=== PATIENT | female | born 1940 | race African-American/Black ===

== ENCOUNTER 2019-02-15 13:18 | Inpatient (IN) | payer OTHER ==
--- NOTE | 2019-02-15 14:11 | PDOC ---
History of Present Illness - General Chief Complaint: Shortness of Breath Stated Complaint: SOB Time Seen by Provider: 02/15/19 14:06 History Source: Patient Exam Limitations: No Limitations - History of Present Illness Initial Comments: 02/15/19 14:37 78 yo F with pmhx of NIDDM, COPD and PVD presents with one week history of worsening shortness of breath. Her home medications are not helping. She denies cough, sputum productions, orthopnea, increased leg swelling, fever or chills. Denies CP,TAI, palpitations, abdominal pain, nausea, fever or vomiting. Past History - Travel Traveled outside of the country in the last 30 days: No Close contact w/someone who was outside of country & ill: No - Past Medical History Allergies/Adverse Reactions: Allergies Allergy/AdvReac Type Severity Reaction Status Date / Time No Known Drug Allergies Allergy Verified 02/15/19 13:43 Home Medications: Ambulatory Orders Ezetimibe [Zetia -] 10 mg PO DAILY 05/24/12 Apixaban [Eliquis] 5 mg PO DAILY #70 tablet 05/24/16 Losartan Potassium 100 mg PO DAILY 08/04/17 Aclidinium [place] [Tudorza Pressair] 400 mcg IH BID 01/10/18 Aspirin 81 mg PO DAILY 01/10/18 Calcium 250Mg/Vit-D 125 Units [Oscal 250 mg+D -] 1 combo PO BID 01/10/18 Calcium Carbonate/Vitamin D3 [Oyster Shell 500-Vit D3 200 Tb] 1 each PO BID 08/19 Cetirizine HCl [Zyrtec -] 10 mg PO HS 01/10/18 Ergocalciferol [Drisdol -] 50,000 units PO DAILY 01/10/18 Ferrous Sulfate 325 mg PO DAILY 01/10/18 Glipizide/Metformin HCl [Glipizide-Metformin 5-500 mg] 1 each PO BID 01/10/18 Lipase/Protease/Amylase [Creon Dr 24,000 Units Capsule] 1 each PO BID 01/10/18 Omeprazole 40 mg PO DAILY 01/10/18 Pramipexole Di-HCl [Mirapex] 0.125 mg PO HS 01/10/18 Vitamin B Complex 1 each PO DAILY 01/10/18 Anemia: No Asthma: No Cancer: Yes (cervical Ca s/p ILEANA) Cardiac Disorders: Yes (2 STENTS) CVA: No COPD: No CHF: No Dementia: No Diabetes: Yes GI Disorders: Yes (CONSTIPATION,DIVERTICULOSIS,HEMORRHOIDS) Disorders: No HTN: Yes Hypercholesterolemia: Yes Liver Disease: No Seizures: No Thyroid Disease: No - Surgical History Abdominal Surgery: No Appendectomy: No Cardiac Surgery: Yes (2 STENTS 2015) Cholecystectomy: No Lung Surgery: No Neurologic Surgery: No Orthopedic Surgery: Yes (UYEN. ARTHROSCOPIC KNEE SURGERIES) - Suicide/Smoking/Psychosocial Hx Smoking History: Unknown if ever smoked Have you smoked in the past 12 months: No Number of Cigarettes Smoked Daily: 10 If you are a former smoker, when did you quit?: 2016 Information on smoking cessation initiated: No 'Breaking Loose' booklet given: 10/28/15 Hx Alcohol Use: No Drug/Substance Use Hx: No Substance Use Type: None Hx Substance Use Treatment: No Review of Systems - Review of Systems Able to Perform ROS?: No Is the patient limited [place] proficient: Yes Constitutional: No: Diaphoresis, Fever HEENTM: No: Recent change in vision Respiratory: Yes: Shortness of Breath. No: Cough, Orthopnea, Wheezing, Productive cough Cardiac (ROS): No: Chest Pain, Edema, Irregular Heart Rate, Chest Tightness ABD/GI: No: Difficulty Swallowing, Nausea, Vomiting Musculoskeletal: No: Joint Pain Endocrine: No: Excessive Sweating, Intolerance to Cold *Physical Exam - Vital Signs Last Vital Signs Temp Pulse Resp BP Pulse Ox 97.4 F L 112 H 18 125/91 94 L 02/15/19 13:20 02/15/19 13:20 02/15/19 13:20 02/15/19 13:20 02/15/19 13:20 - Physical Exam General Appearance: Yes: Appropriately Dressed, Mild Distress HEENT: positive: EVANS, Normal Voice Neck: positive: Supple Respiratory/Chest: positive: Decreased Breath Sounds. negative: Crackles, Rales , Wheezing Cardiovascular: positive: Regular Rhythm, Regular Rate, S1, S2, Edema (1+ bilateral LE ). negative: JVD Vascular Pulses: Dorsalis-Pedis (R): 1+, Doralis-Pedis (L): 2+ Gastrointestinal/Abdominal: positive: Normal Bowel Sounds, Flat, Soft Musculoskeletal: negative: CVA Tenderness Neurologic: positive: Alert, Normal Mood/Affect ED Treatment Course - LABORATORY CBC & Chemistry Diagram: 02/19/19 05:30 02/19/19 05:30 Medical Decision Making - Medical Decision Making 02/15/19 14:53 78 yo F with pmhx of NIDDM, COPD and PVD presents with one week history of worsening shortness of breath. Differential includes but not limited to COPD exacerbation, ACS, CHF , and PNA. WIll send for: CBC, CMP, Cardiac profile and BNP. CXR and EKG ordered. 02/15/19 18:26 CXR shows vascular congestion and BNP >6000. troponin 0.3 appears to be new onset CHF. Spoke to hospitalist- Accepted to telemetry. *DC/Admit/Observation/Transfer Diagnosis at time of Disposition: New onset of congestive heart failure - Discharge Dispostion Decision to Admit order: Yes - Referrals - Patient Instructions - Post Discharge Activity
--- NOTE | 2019-02-15 14:57 | PDOC ---
Documentation entered by Antonio Hollingsworth SCRIBE, acting as scribe for Kesha Boykin MD. Kesha Boykin MD: This documentation has been prepared by the Darrick awan Nirvannie, SCRIBE, under my direction and personally reviewed by me in its entirety. I confirm that the documentation accurately reflects all work, treatment, procedures, and medical decision making performed by me. Attending Attestation - Resident Resident Name: Guillermo Howard - ED Attending Attestation I have performed the following: I have examined & evaluated the patient, The case was reviewed & discussed with the resident, I agree w/resident's findings & plan, Exceptions are as noted - HPI HPI: 02/15/19 14:53 The patient is a 78 year old female, with a significant past medical history of NIDDM, COPD, and PVD , who presents to the emergency department with, 1 week of worsening shortness of breath. Patient endorses using her at home rescue inhaler , without relief, prompting her arrival to the ED. She denies any chest pain or palpitations. She denies recent fevers, chills, headache or dizziness. She denies recent nausea, vomit, diarrhea or constipation. She denies recent dysuria, frequency, urgency or hematuria. Allergies: NKDA Primary Care Physician: Dr. Graff - Physicial Exam PE: 02/15/19 14:48 GENERAL: Awake, alert, and fully oriented, in no acute distress HEAD: No signs of trauma EYES: PERRLA, EOMI, sclera anicteric, conjunctiva clear ENT: Auricles normal inspection, hearing grossly normal, nares patent, oropharynx clear without exudates. Moist mucosa NECK: Normal ROM, supple, no lymphadenopathy, JVD, or masses LUNGS: Dec air entry B/L. No wheezes, no crackles. HEART: Regular rate and rhythm, normal S1 and S2, no murmurs, rubs or gallops ABDOMEN: Soft, nontender, normoactive bowel sounds. No guarding, no rebound. No masses EXTREMITIES: Normal range of motion, no edema. No clubbing or cyanosis. No cords, erythema, or tenderness NEUROLOGICAL: Cranial nerves II through XII grossly intact. Normal speech. Motor and sensation intact SKIN: Warm, Dry, normal turgor, no rashes or lesions noted - Medical Decision Making Pt with multiple medical issues presents with SOB, tachycardia. No leg swelling. Will obtain labs including troponin and BNP to further evaluate. Will also obtain CXR to r/o pna.
[2019-02-15 16:22] LABS: BASO % 0.4 % (0-2.0); EOS % 0.3 % (0-4.5); HEMOGLOBIN 12.4 GM/dL (10.7-15.3); LYMPH % 10.4 % (8-40); MCHC 31.8 g/dl (32.0-36.0); MEAN CELL VOLUME 88.1 fl (80-96); MEAN PLT VOLUME 7.2 fl (7.5-11.1); MONO % 4.1 % (3.8-10.2); NEUT % 84.8 % (42.8-82.8); RBC 4.43 M/mm3 (3.60-5.2); RDW 13.1 % (11.6-15.6); WHITE BLOOD COUNT 11.2 K/mm3 (4.0-10.0)
[2019-02-15 16:56] LABS: PLATELET COUNT 364 K/MM3 (134-434); PLATELET ESTIMATE ADEQUATE
[2019-02-15 16:58] LABS: ALBUMIN 3.3 g/dl (3.4-5.0); BILIRUBIN,TOTAL 0.8 mg/dL (0.2-1); CREATININE 1.6 mg/dL (0.55-1.3); N-TERMINAL BNP 6069.3 pg/ml (5-450); TOT PROT 7.5 g/dl (6.4-8.2)
[2019-02-15 16:59] LABS: POTASSIUM 3.9 mmol/L (3.5-5.1)
[2019-02-15] MEDS: ALBUTEROL SO4 2.5/IPRATROPIUM 0.5 INH SOL 3 ML VIAL.NEB. NEB SCH ×4 (17:04→17:35)
[2019-02-15] MEDS ORDERED: ALBUTEROL SO4 2.5/IPRATROPIUM 0.5 INH SOL 3 ML VIAL.NEB. NEB ONE ×2 (17:06→17:54)
[2019-02-15] MEDS: ASPIRIN 325 MG TABLET PO SCH (18:17)
--- NOTE | 2019-02-15 19:59 | HP ---
Admitting History and Physical - Primary Care Physician PCP: Greer Mcclain - Admission Chief Complaint: Shortness of breath History of Present Illness: this is a 78 y/o F with hx of HTN, DL, DMII, PAD s/p stent, aortic aneurysm s/p stent presented to the hospital for 1 week history of shortness of breath associated with cough, according the patient she was feeling fine until mohter' s day when she started to develop SOB associated with her cough, she denied any fever but she did state that she felt cold few times. patient denied any chest pain, chest discomfort, palpitations, or LOC, she stated that her legs were swollen but the swelling has improved drastically over the past month. Limitations to Obtaining History: No Limitations - Past Medical History Cardiovascular: Yes: Hyperlipdemia Endocrine: Yes: Diabetes Mellitus - Smoking History Smoking history: Unknown if ever smoked Have you smoked in the past 12 months: No Aproximately how many cigarettes per day: 10 If you are a former smoker, when did you quit?: 2016 - Alcohol/Substance Use Hx Alcohol Use: No Home Medications - Allergies Allergies/Adverse Reactions: Allergies Allergy/AdvReac Type Severity Reaction Status Date / Time No Known Drug Allergies Allergy Verified 02/15/19 13:43 - Home Medications Home Medications: Ambulatory Orders Ezetimibe [Zetia -] 10 mg PO DAILY 05/24/12 Apixaban [Eliquis] 5 mg PO DAILY #70 tablet 05/24/16 Losartan Potassium 100 mg PO DAILY 08/04/17 Aclidinium [place] [Tudorza Pressair] 400 mcg IH BID 01/10/18 Aspirin 81 mg PO DAILY 01/10/18 Calcium 250Mg/Vit-D 125 Units [Oscal 250 mg+D -] 1 combo PO BID 01/10/18 Calcium Carbonate/Vitamin D3 [Oyster Shell 500-Vit D3 200 Tb] 1 each PO BID 08/19 Cetirizine HCl [Zyrtec -] 10 mg PO HS 01/10/18 Ergocalciferol [Drisdol -] 50,000 units PO DAILY 01/10/18 Ferrous Sulfate 325 mg PO DAILY 01/10/18 Glipizide/Metformin HCl [Glipizide-Metformin 5-500 mg] 1 each PO BID 01/10/18 Lipase/Protease/Amylase [Creon Dr 24,000 Units Capsule] 1 each PO BID 01/10/18 Omeprazole 40 mg PO DAILY 01/10/18 Pramipexole Di-HCl [Mirapex] 0.125 mg PO HS 01/10/18 Vitamin B Complex 1 each PO DAILY 01/10/18 Review of Systems - Review of Systems Constitutional: reports: Chills. denies: No Symptoms, Diaphoresis, Fever, Lethargy, Loss of Appetite, Malaise, Night Sweats, Unintentional Wgt. Loss, Weakness, Other Eyes: reports: No Symptoms HENT: reports: No Symptoms Neck: reports: No Symptoms Cardiovascular: reports: Shortness of Breath Respiratory: reports: Cough, SOB, SOB on Exertion Gastrointestinal: reports: No Symptoms Genitourinary: reports: No Symptoms Breasts: reports: No Symptoms Reported Musculoskeletal: reports: No Symptoms Integumentary: reports: No Symptoms Neurological: reports: No Symptoms Endocrine: reports: No Symptoms Hematology/Lymphatic: reports: No Symptoms Psychiatric: reports: No Symptoms Physical Examination Vital Signs: Vital Signs Temperature 97.4 F L 02/15/19 13:20 Pulse Rate 120 H 02/15/19 19:28 Respiratory Rate 22 H 02/15/19 19:28 Blood Pressure 112/84 02/15/19 19:28 O2 Sat by Pulse Oximetry (%) 95 02/15/19 19:28 Constitutional: Yes: Well Nourished, No Distress, Calm Eyes: Yes: WNL, Conjunctiva Clear, EOM Intact HENT: Yes: WNL, Atraumatic, Normocephalic Neck: Yes: WNL, Supple, Trachea Midline Cardiovascular: Yes: WNL, Regular Rate and Rhythm, Tachycardia, S1, S2 Respiratory: Yes: Regular, CTA Bilaterally, Cough, Diminished, Dullness, On Nasal O2 Gastrointestinal: Yes: WNL, Normal Bowel Sounds, Soft Musculoskeletal: Yes: WNL Extremities: Yes: WNL Edema: No Peripheral Pulses WNL: Yes Integumentary: Yes: WNL Neurological: Yes: WNL, Alert, Oriented ...Motor Strength: WNL Psychiatric: Yes: WNL, Alert, Oriented Labs: CBC, BMP 02/15/19 14:05 02/15/19 14:05 Imaging - Results Chest X-ray: Report Reviewed, Image Reviewed EKG: Report Reviewed, Image Reviewed Problem List - Problems (1) HFrEF (heart failure with reduced ejection fraction) Assessment/Plan: based on elevated BNP - patient is not in an acute decompensted state at this time - obtain echocardiogram - cardiology consult dr. Lao - admit patient to Tele monitor - start patient on low dose b-blockers - Hold the ARB in the setting of BRENNON Code(s): I50.20 - UNSPECIFIED SYSTOLIC (CONGESTIVE) HEART FAILURE (2) Diabetes mellitus type 2 in obese Assessment/Plan: Insulin sliding scale hold the PO medication Code(s): E11.9 - TYPE 2 DIABETES MELLITUS WITHOUT COMPLICATIONS; E66.9 - OBESITY , UNSPECIFIED (3) Hyperlipidemia Assessment/Plan: c/w statin Code(s): E78.5 - HYPERLIPIDEMIA, UNSPECIFIED Qualifiers: Hyperlipidemia type: Pure hypercholesterolemia (4) Hypertension associated with diabetes Assessment/Plan: hold ARB start the patient on carvedilol 3.125mg twice a day and titrate accordingly Code(s): E11.59 - TYPE 2 DIABETES MELLITUS WITH OTH CIRCULATORY COMPLICATIONS; I10 - ESSENTIAL (PRIMARY) HYPERTENSION (5) Acute kidney injury superimposed on chronic kidney disease Assessment/Plan: possible hypoperfusion due to DCHF obtain urine electrolytes - urin osmolarity - renal evaluation - monitor urine output - hold nephrotoxic drug - repeat labs in the morning Code(s): N17.9 - ACUTE KIDNEY FAILURE, UNSPECIFIED; N18.9 - CHRONIC KIDNEY DISEASE, UNSPECIFIED
[2019-02-15] MEDS ORDERED: PATIENT'S OWN MEDICATION (NON-FORMULARY) (Lipase/Protease/Amylase [Creon Dr 24,000 Units C PO SCH (22:00)
[2019-02-15] MEDS: CARVEDILOL 3.125 MG TABLET (FP) PO SCH (22:56)
[2019-02-15] MEDS: CALCIUM 250MG/VIT-D 125 UNITS 1 COMBO TABLET PO SCH (22:56)
[2019-02-15] MEDS: PRAMIPEXOLE DIHYDROCHLORIDE 0.125 MG TABLET PO SCH (22:57)
[2019-02-16] MEDS: INSULIN SLIDING SCALE (NOVOLOG) 1 VIAL SQ SCH ×3 (06:13→16:44)
[2019-02-16 06:49] LABS: BASO % 0.6 % (0-2.0); EOS % 0.8 % (0-4.5); HEMATOCRIT 35.8 % (32.4-45.2); HEMOGLOBIN 11.8 GM/dL (10.7-15.3); MCH 28.8 pg (25.7-33.7); MCHC 32.8 g/dl (32.0-36.0); MEAN CELL VOLUME 87.6 fl (80-96); MEAN PLT VOLUME 7.2 fl (7.5-11.1); MONO % 5.3 % (3.8-10.2); NEUT % 80.3 % (42.8-82.8); PLATELET COUNT 392 K/MM3 (134-434); RBC 4.09 M/mm3 (3.60-5.2); RDW 12.8 % (11.6-15.6)
[2019-02-16 07:19] LABS: ALBUMIN 3.1 g/dl (3.4-5.0); BILIRUBIN,TOTAL 0.7 mg/dL (0.2-1); CALCIUM 8.7 mg/dL (8.5-10.1); CREATININE 1.4 mg/dL (0.55-1.3); POTASSIUM 3.8 mmol/L (3.5-5.1); TOT PROT 6.9 g/dl (6.4-8.2)
[2019-02-16] MEDS: LIPASE/PROTEASE/AMYLASE 6,000 UNIT CAPSULE PO SCH ×2 (08:36→16:45)
[2019-02-16] MEDS: ASPIRIN 325 MG TABLET PO SCH ×2 (09:09→09:12)
[2019-02-16] MEDS: EZETIMIBE 10 MG TABLET (FP) PO SCH (09:09)
[2019-02-16] MEDS: ASPIRIN 81 MG CHEWABLE TABLETS PO SCH (09:09)
[2019-02-16] MEDS: PANTOPRAZOLE 40 MG TABLET (FP) PO SCH (09:09)
[2019-02-16] MEDS: CALCIUM 250MG/VIT-D 125 UNITS 1 COMBO TABLET PO SCH ×2 (09:09→21:52)
[2019-02-16] MEDS: VITAMIN B COMP W-C 1 EA TABLET PO SCH (09:10)
[2019-02-16] MEDS: CARVEDILOL 3.125 MG TABLET (FP) PO SCH ×2 (09:10→21:52)
[2019-02-16] MEDS ORDERED: PATIENT'S OWN MEDICATION (NON-FORMULARY) (Omeprazole [Omeprazole] 40 MG) PO SCH (10:00)
[2019-02-16] MEDS ORDERED: APIXABAN 5 MG TABLET PO SCH (10:00)
[2019-02-16] MEDS ORDERED: PATIENT'S OWN MEDICATION (NON-FORMULARY) (Vitamin B Complex [Vitamin B Complex] 1 EACH) PO SCH (10:00)
--- NOTE | 2019-02-16 11:05 | EKG ---
Test Reason : Blood Pressure : / mmHG Vent. Rate : 110 BPM Atrial Rate : 110 BPM P-R Int : 124 ms QRS Dur : 096 ms QT Int : 390 ms P-R-T Axes : 059 -09 031 degrees QTc Int : 527 ms SINUS TACHYCARDIA INCOMPLETE RIGHT BUNDLE BRANCH BLOCK INFERIOR INFARCT , AGE UNDETERMINED NONSPECIFIC ST ABNORMALITY Confirmed by INDY MONTEZ MD ([id number]) on 02/16/2019 11:05:18 AM Referred By: Confirmed By:INDY MONTEZ MD
--- NOTE | 2019-02-16 12:45 | PN ---
Progress Note, Physician - Current Medication List Current Medications: Active Medications Apixaban (Eliquis -) 5 mg PO BID [facility] Aspirin (Asa -) 81 mg PO DAILY [facility] Last Admin: 02/16/19 09:09 Dose: 81 mg Calcium/Vitamin D (Oscal 250 Mg+D -) 1 tab PO BID [facility] Last Admin: 02/16/19 09:09 Dose: 1 tab Carvedilol (Coreg -) 3.125 mg PO BID [facility] Last Admin: 02/16/19 09:10 Dose: 3.125 mg Ezetimibe (Zetia -) 10 mg PO DAILY [facility] Last Admin: 02/16/19 09:09 Dose: 10 mg Furosemide (Lasix Injection -) 40 mg IVPUSH DAILY [facility] Insulin Aspart (Novolog Vial Sliding Scale -) 1 vial SQ TIDAC [facility]; Protocol Last Admin: 02/16/19 11:03 Dose: Not Given Multivit/Ca Carb/B Cmplx/FA/Prenat (Nephro-Lisa -) 1 tablet PO DAILY [facility] Last Admin: 02/16/19 09:10 Dose: 1 tablet Pancrelipase (Creon Dr 6,000 Units Capsule) 4 cap PO BIDWM [facility] Last Admin: 02/16/19 08:36 Dose: 4 cap Pantoprazole Sodium (Protonix -) 40 mg PO DAILY [facility] Last Admin: 02/16/19 09:09 Dose: 40 mg Pramipexole Dihydrochloride (Mirapex -) 0.125 mg PO HS [facility] Last Admin: 02/15/19 22:57 Dose: 0.125 mg - Objective Vital Signs: Vital Signs Temperature 97.7 F 02/16/19 12:03 Pulse Rate 93 H 02/16/19 12:03 Respiratory Rate 18 02/16/19 12:03 Blood Pressure 119/79 02/16/19 12:03 O2 Sat by Pulse Oximetry (%) 97 02/16/19 07:41 Cardiovascular: Yes: S1, S2 Respiratory: Yes: Diminished, Rales Gastrointestinal: Yes: Normal Bowel Sounds, Soft Labs: CBC, BMP 02/16/19 05:30 02/16/19 05:30 Problem List - Problems (1) HFrEF (heart failure with reduced ejection fraction) Assessment/Plan: - obtain echocardiogram - start patient on low dose b-blockers - IV Lasix - Hold the ARB in the setting of BRENNON Code(s): I50.20 - UNSPECIFIED SYSTOLIC (CONGESTIVE) HEART FAILURE (2) Acute kidney injury superimposed on chronic kidney disease Assessment/Plan: obtain urine electrolytes - urine osmolarity - monitor urine output - hold nephrotoxic drug - repeat labs in the morning - Renal consult Code(s): N17.9 - ACUTE KIDNEY FAILURE, UNSPECIFIED; N18.9 - CHRONIC KIDNEY DISEASE, UNSPECIFIED (3) Diabetes Assessment/Plan: Insulin sliding scale hold the PO medication Code(s): E11.9 - TYPE 2 DIABETES MELLITUS WITHOUT COMPLICATIONS
[2019-02-16] MEDS: FUROSEMIDE 40 MG/4 ML INJECTABLE VIAL IVPUSH SCH (13:28)
[2019-02-16] MEDS ORDERED: PT OWN MED DRAWER 7, Y5N ONE ×2 (16:56→21:29)
[2019-02-16] MEDS: APIXABAN 5 MG TABLET PO SCH (21:52)
[2019-02-16] MEDS: PRAMIPEXOLE DIHYDROCHLORIDE 0.125 MG TABLET PO SCH (21:53)
[2019-02-17] MEDS: INSULIN SLIDING SCALE (NOVOLOG) 1 VIAL SQ SCH ×3 (06:01→16:49)
[2019-02-17] MEDS: LIPASE/PROTEASE/AMYLASE 6,000 UNIT CAPSULE PO SCH ×2 (08:18→17:02)
--- NOTE | 2019-02-17 09:56 | PN ---
Progress Note, Physician - Current Medication List Current Medications: Active Medications Apixaban (Eliquis -) 5 mg PO BID [facility] Apixaban (Eliquis -) 10 mg PO BID [facility] Stop: 02/23/19 21:59 Last Admin: 02/16/19 21:52 Dose: 10 mg Aspirin (Asa -) 81 mg PO DAILY [facility] Last Admin: 02/16/19 09:09 Dose: 81 mg Calcium/Vitamin D (Oscal 250 Mg+D -) 1 tab PO BID [facility] Last Admin: 02/16/19 21:52 Dose: 1 tab Carvedilol (Coreg -) 3.125 mg PO BID [facility] Last Admin: 02/16/19 21:52 Dose: 3.125 mg Ezetimibe (Zetia -) 10 mg PO DAILY [facility] Last Admin: 02/16/19 09:09 Dose: 10 mg Furosemide (Lasix Injection -) 40 mg IVPUSH DAILY [facility] Last Admin: 02/16/19 13:28 Dose: 40 mg Insulin Aspart (Novolog Vial Sliding Scale -) 1 vial SQ TIDAC [facility]; Protocol Last Admin: 02/17/19 06:01 Dose: Not Given Multivit/Ca Carb/B Cmplx/FA/Prenat (Nephro-Lisa -) 1 tablet PO DAILY [facility] Last Admin: 02/16/19 09:10 Dose: 1 tablet Pancrelipase (Creon Dr 6,000 Units Capsule) 4 cap PO BIDWM [facility] Last Admin: 02/17/19 08:18 Dose: 4 cap Pantoprazole Sodium (Protonix -) 40 mg PO DAILY [facility] Last Admin: 02/16/19 09:09 Dose: 40 mg Pramipexole Dihydrochloride (Mirapex -) 0.125 mg PO HS [facility] Last Admin: 02/16/19 21:53 Dose: 0.125 mg - Objective Vital Signs: Vital Signs Temperature 98.2 F 02/17/19 08:20 Pulse Rate 92 H 02/17/19 08:20 Respiratory Rate 18 02/17/19 08:23 Blood Pressure 134/79 02/17/19 08:20 O2 Sat by Pulse Oximetry (%) 97 02/17/19 08:23 Cardiovascular: Yes: S1, S2 Respiratory: Yes: Regular, CTA Bilaterally Gastrointestinal: Yes: Normal Bowel Sounds, Soft Problem List - Problems (1) HFrEF (heart failure with reduced ejection fraction) Assessment/Plan: - obtain echocardiogram - start patient on low dose b-blockers - IV Lasix - Hold the ARB in the setting of BRENNON -CARDIO Code(s): I50.20 - UNSPECIFIED SYSTOLIC (CONGESTIVE) HEART FAILURE (2) Acute kidney injury superimposed on chronic kidney disease Assessment/Plan: - obtain urine electrolytes - urine osmolarity - monitor urine output - hold nephrotoxic drug - repeat labs in the morning - Renal consult Code(s): N17.9 - ACUTE KIDNEY FAILURE, UNSPECIFIED; N18.9 - CHRONIC KIDNEY DISEASE, UNSPECIFIED (3) Diabetes Assessment/Plan: Insulin sliding scale hold the PO medication Code(s): E11.9 - TYPE 2 DIABETES MELLITUS WITHOUT COMPLICATIONS
[2019-02-17 10:05] LABS: BASO % 0.4 % (0-2.0); EOS % 1.3 % (0-4.5); HEMATOCRIT 39.7 % (32.4-45.2); HEMOGLOBIN 12.7 GM/dL (10.7-15.3); LYMPH % 10.6 % (8-40); MCH 28.1 pg (25.7-33.7); MCHC 31.9 g/dl (32.0-36.0); MEAN CELL VOLUME 88.3 fl (80-96); MEAN PLT VOLUME 7.1 fl (7.5-11.1); NEUT % 82.7 % (42.8-82.8); PLATELET COUNT 398 K/MM3 (134-434); WHITE BLOOD COUNT 10.4 K/mm3 (4.0-10.0)
[2019-02-17 10:19] LABS: BILIRUBIN,TOTAL 0.7 mg/dL (0.2-1); CALCIUM 8.9 mg/dL (8.5-10.1); CREATININE 1.3 mg/dL (0.55-1.3); POTASSIUM 3.6 mmol/L (3.5-5.1); TOT PROT 6.7 g/dl (6.4-8.2)
[2019-02-17] MEDS: CALCIUM 250MG/VIT-D 125 UNITS 1 COMBO TABLET PO SCH ×2 (10:30→22:02)
[2019-02-17] MEDS: PANTOPRAZOLE 40 MG TABLET (FP) PO SCH (10:30)
[2019-02-17] MEDS: ASPIRIN 81 MG CHEWABLE TABLETS PO SCH (10:30)
[2019-02-17] MEDS: VITAMIN B COMP W-C 1 EA TABLET PO SCH (10:30)
[2019-02-17] MEDS: EZETIMIBE 10 MG TABLET (FP) PO SCH (10:31)
[2019-02-17] MEDS: CARVEDILOL 3.125 MG TABLET (FP) PO SCH ×2 (10:31→22:02)
[2019-02-17] MEDS: APIXABAN 5 MG TABLET PO SCH ×2 (10:32→22:02)
[2019-02-17] MEDS: FUROSEMIDE 40 MG/4 ML INJECTABLE VIAL IVPUSH SCH (10:32)
--- NOTE | 2019-02-17 11:01 | CONSULT ---
Consult - text type - Consultation Consultation Note: Renal Consult for CKD This is a 78 year old woman with hx of AAA s/p endovascular repair 2016, PVD, HTN, HLD, DM2 who presented with complaints of cough and admitted for heart failure with Cr of 1.6->1.3. Pt denies any history of CKD, kidney stones, or recurrent UTI's. Denies any NSAID use or recent contrast exposure. Making urine w/o dysuira, hematuria or retention. No leg swelling now. Feels better overall this am. Pt reports being on diuretics at home. Denies any CP, fever, chills, N/ V/D. PMHx: as above Allergies: NKDA Family Hx: NC Social Hx: No T/A/D ROS: as per HPI, all other pertinent ros negative Home Medications Medication Instructions Recorded Ezetimibe [Zetia -] 10 mg PO DAILY 05/24/12 Apixaban [Eliquis] 5 mg PO DAILY #70 tablet 05/24/16 Losartan Potassium 100 mg PO DAILY 08/04/17 Aclidinium [place] [Tudorza 400 mcg IH BID 01/10/18 Pressair] Aspirin 81 mg PO DAILY 01/10/18 Calcium 250Mg/Vit-D 125 Units 1 combo PO BID 01/10/18 [Oscal 250 mg+D -] Calcium Carbonate/Vitamin D3 1 each PO BID 01/10/18 [Oyster Shell 500-Vit D3 200 Tb] Cetirizine HCl [Zyrtec -] 10 mg PO HS 01/10/18 Ergocalciferol [Drisdol -] 50,000 units PO DAILY 01/10/18 Ferrous Sulfate 325 mg PO DAILY 01/10/18 Glipizide/Metformin HCl 1 each PO BID 01/10/18 [Glipizide-Metformin 5-500 mg] Lipase/Protease/Amylase [Creon Dr 1 each PO BID 01/10/18 24,000 Units Capsule] Omeprazole 40 mg PO DAILY 01/10/18 Pramipexole Di-HCl [Mirapex] 0.125 mg PO HS 01/10/18 Vitamin B Complex 1 each PO DAILY 01/10/18 Vital Signs Temperature 98.2 F 02/17/19 08:20 Pulse Rate 92 H 02/17/19 08:20 Respiratory Rate 18 02/17/19 08:23 Blood Pressure 134/79 02/17/19 08:20 O2 Sat by Pulse Oximetry (%) 97 02/17/19 08:23 Intake & Output 02/14/19 02/15/19 02/16/19 02/17/19 23:59 23:59 23:59 23:59 Intake Total 150 1090 100 Output Total 400 Balance 150 690 100 Weight 82.554 kg 82.282 kg 82.191 kg NAD awake and alert neck supple no JVD RRR, no M/R CTA, no rales, dec BS, no wheeze soft NT/ND no LE edema, clubbing or cyanosis no focal neurologic deficits no bladder distension CBC, BMP 02/17/19 09:36 02/17/19 09:36 Laboratory Tests 02/17/19 09:36 Est GFR (CKD-EPI)AfAm 46.15 Calcium 8.9 Albumin 3.0 L Current Medications Apixaban (Eliquis -) 5 mg PO BID [facility] Apixaban (Eliquis -) 10 mg PO BID [facility] Stop: 02/23/19 21:59 Last Admin: 02/17/19 10:32 Dose: 10 mg Aspirin (Asa -) 81 mg PO DAILY [facility] Last Admin: 02/17/19 10:30 Dose: 81 mg Calcium/Vitamin D (Oscal 250 Mg+D -) 1 tab PO BID [facility] Last Admin: 02/17/19 10:30 Dose: 1 tab Carvedilol (Coreg -) 3.125 mg PO BID [facility] Last Admin: 02/17/19 10:31 Dose: 3.125 mg Ezetimibe (Zetia -) 10 mg PO DAILY [facility] Last Admin: 02/17/19 10:31 Dose: 10 mg Furosemide (Lasix Injection -) 40 mg IVPUSH DAILY [facility] Last Admin: 02/17/19 10:32 Dose: 40 mg Insulin Aspart (Novolog Vial Sliding Scale -) 1 vial SQ TIDAC [facility]; Protocol Last Admin: 02/17/19 06:01 Dose: Not Given Multivit/Ca Carb/B Cmplx/FA/Prenat (Nephro-Lisa -) 1 tablet PO DAILY [facility] Last Admin: 02/17/19 10:30 Dose: 1 tablet Pancrelipase (Creon Dr 6,000 Units Capsule) 4 cap PO BIDWM [facility] Last Admin: 02/17/19 08:18 Dose: 4 cap Pantoprazole Sodium (Protonix -) 40 mg PO DAILY [facility] Last Admin: 02/17/19 10:30 Dose: 40 mg Pramipexole Dihydrochloride (Mirapex -) 0.125 mg PO HS [facility] Last Admin: 02/16/19 21:53 Dose: 0.125 mg 78 year old woman with hx of AAA s/p endovascular repair 2016, PVD, HTN, HLD, DM2 who presented with complaints of cough and admitted for heart failure with Cr of 1.6->1.3. #BRENNON vs. CKD #SOB with HF #Hypertension #DM2 Renal function improving thus far this admission while on IV Lasix Check Urine for FeUrea, Urine Eos, UPCR no acute need for renal imaging at this time off ARB, however if Cr remains stable or improves can restart continue Lasix as per primary CXR w/o effusions ECHO as per cardiology goal BP < 130/80 given CKD/DM Thank you Will follow Maurilio Escobar DO
--- NOTE | 2019-02-17 11:28 | PN ---
Progress Note (short form) - Note Progress Note: Chief Complaint: Events noted, notes reviewed, progressive dyspnea with increasing bilateral lower extremity edema, denies any chest pain History of Present Illness: Seen and examined on telemetry. Full consult dictated - Current Medication List Current Medications Apixaban (Eliquis -) 5 mg PO BID [facility] Apixaban (Eliquis -) 10 mg PO BID [facility] Stop: 02/23/19 21:59 Last Admin: 02/17/19 10:32 Dose: 10 mg Aspirin (Asa -) 81 mg PO DAILY [facility] Last Admin: 02/17/19 10:30 Dose: 81 mg Calcium/Vitamin D (Oscal 250 Mg+D -) 1 tab PO BID [facility] Last Admin: 02/17/19 10:30 Dose: 1 tab Carvedilol (Coreg -) 3.125 mg PO BID [facility] Last Admin: 02/17/19 10:31 Dose: 3.125 mg Ezetimibe (Zetia -) 10 mg PO DAILY [facility] Last Admin: 02/17/19 10:31 Dose: 10 mg Furosemide (Lasix Injection -) 40 mg IVPUSH DAILY [facility] Last Admin: 02/17/19 10:32 Dose: 40 mg Insulin Aspart (Novolog Vial Sliding Scale -) 1 vial SQ TIDAC [facility]; Protocol Last Admin: 02/17/19 06:01 Dose: Not Given Multivit/Ca Carb/B Cmplx/FA/Prenat (Nephro-Lisa -) 1 tablet PO DAILY [facility] Last Admin: 02/17/19 10:30 Dose: 1 tablet Pancrelipase (Creon Dr 6,000 Units Capsule) 4 cap PO BIDWM [facility] Last Admin: 02/17/19 08:18 Dose: 4 cap Pantoprazole Sodium (Protonix -) 40 mg PO DAILY [facility] Last Admin: 02/17/19 10:30 Dose: 40 mg Pramipexole Dihydrochloride (Mirapex -) 0.125 mg PO HS [facility] Last Admin: 02/16/19 21:53 Dose: 0.125 mg Review of Systems Cardiovascular: As noted above Respiratory: denies: Cough or Sputum Production Gastrointestinal: denies: Nausea, Vomiting, Diarrhea, Constipation or Abdominal Discomfort Musculoskeletal: No Symptoms Reported Endocrine: No Symptoms Reported - Objective Vital Signs: Last Vital Signs Temp Pulse Resp BP Pulse Ox 98.2 F 92 H 18 134/79 97 02/17/19 08:20 02/17/19 08:20 02/17/19 08:23 02/17/19 08:20 02/17/19 08:23 Intake & Output 02/14/19 02/15/19 02/16/19 02/17/19 23:59 23:59 23:59 23:59 Intake Total 150 1090 100 Output Total 400 Balance 150 690 100 Weight 182 lb 181 lb 6.4 oz 181 lb 3.2 oz Neck: Supple Negative JVD No Bruit Cardiovascular: S1 S2 Regular Rate and Rhythm Grade 2/6 JULY Respiratory: Diminished Breath Sounds Bilaterally Scattered Rhonchi Gastrointestinal: Soft Benign Normal Bowel Sounds Ext: Trace Edema Labs: Troponin, BNP 02/17/19 09:36 Troponin I 0.07 H CBC, BMP 02/17/19 09:36 02/17/19 09:36 Hepatic Panel Total Bilirubin 0.7 mg/dL (0.2-1) 02/17/19 09:36 AST 24 U/L (15-37) 02/17/19 09:36 ALT 19 U/L (13-61) 02/17/19 09:36 Alkaline Phosphatase 70 U/L (45-117) 02/17/19 09:36 Albumin 3.0 g/dl (3.4-5.0) L 02/17/19 09:36 Assessment/Plan ASSESSMENT: 1. Clinical presentation consistent with acute on chronic class I-II NYHA classifcation LV failure related to diastolic LV dysfunction 2. CAD with evidence of demand ischemia angina pectoris 3. HTN 4. DM 5. Hypercholesterolemia 6. Heart murmur 7. History of AAA post EVAR 8. History of DVT on Eliquis 9. COPD 10. Probable POOJA 11. Chronic renal insufficiency PLAN: 1. Continue Eliquis and ASA therapies with caution 2. Continuation of Coreg therapy and further titration of dosage as needed and as tolerated 3. Addition of JEAN PIERRE inhibitor or angiotensin receptor mitra therapy with caution considering the above-noted chronic kidney disease unless contraindicated 4. Continuation of IV Lasix therapy 5. Echocardiography for evaluation of left ventricular systolic function and the above-noted heart murmur Further recommendation will depend upon response to above therapy adjustments and results of above planned echocardiography study Above was reviewed and discussed in detail with the patient Elizabeth Mon M.D.
--- NOTE | 2019-02-17 16:50 | CONS ---
DATE OF CONSULTATION: DATE OF DICTATION: 02/17/2019 Consultation requested by Rigo Graff MD. HISTORY OF PRESENT ILLNESS: Patient known to our service. A 78-year-old female of descent with known history of coronary artery disease, angina pectoris, diastolic left ventricular dysfunction with clinical class 0 [place] [employer] classification left ventricular failure, hypertensive cardiovascular disease, diabetes mellitus, hypercholesterolemia, abdominal aortic aneurysm post endovascular repair, history of DVT on Eliquis therapy, history of probable chronic obstructive pulmonary disease and obstructive sleep apnea who presented to [facility] with increasing dyspnea which has been progressive over the last several days and in addition increasing bilateral lower extremity edema. Upon evaluation in the emergency room the patient was noted to have elevated BNP and in addition elevated troponin-I level. Dyspnea has been noted with mild to moderate physical exertion and subsequently with minimal physical activity. The patient reported increasing bilateral lower extremity edema. The patient denied any orthopnea or paroxysmal nocturnal dyspnea. The patient denied any chest discomfort. The patient denied any palpitation, dizziness, light-headedness or syncope. The patient has been reporting increasing fatigue and tiredness. PAST MEDICAL HISTORY: Coronary artery disease, angina pectoris, diastolic left ventricular dysfunction with clinical class 0 [place] [employer] classification left ventricular failure, hypertensive cardiovascular disease, diabetes mellitus, hypercholesterolemia, abdominal aortic aneurysm, post endovascular intervention, peripheral vascular disease, deep vein thrombosis on Eliquis therapy, chronic obstructive pulmonary disease, degenerative joint disease. SOCIAL HISTORY: Prior history of tobacco abuse. FAMILY HISTORY: Positive coronary artery disease. ALLERGIES: None reported. MEDICAL THERAPY: Currently include Eliquis 5 mg twice a day, aspirin 81 mg once a day, calcium 1 tablet twice a day, Coreg 3.125 mg twice a day, Zetia 10 mg once a day, Lasix 40 mg IV push once a day, insulin coverage, multivitamin 1 tablet once a day, Creon 4 capsules twice a day, Protonix 40 mg once a day, Mirapex 0.125 mg once daily. REVIEW OF SYSTEMS: Head and neck: Denies headaches, photophobia, blurring of vision. Respiratory: Denies cough, sputum production. Cardiovascular: As noted above. Gastrointestinal: Denied nausea, vomiting, diarrhea, abdominal discomfort. Genitourinary: No symptoms reported. Musculoskeletal: History of degenerative joint disease. PHYSICAL EXAMINATION: Vital Signs: Blood pressure is 134/79 mmHg, pulse rate is 92 beats per minute. Head/Neck: Pupils equal round and reactive to light and accommodation. Extraocular muscles intact. Anicteric sclerae. Negative JVD. No bruit appreciated. Chest: Diminished breath sounds at the bases bilaterally. Cardiovascular: S1, S2 regular, grade 2/6 systolic ejection murmur. No clicks or gallops. Abdomen: Soft, benign, normoactive bowel sounds. Extremities: Trace edema. Diminished distal pulses. No calf tenderness. Chest x-ray was noted. Troponin-I 0.07. BNP value was noted. CBC revealed a white cell count 10.4, hemoglobin 12.7, platelet count 398. Basic metabolic profile revealed a sodium of 141, potassium 3.6, BUN 16, creatinine 1.3, glucose 180. ASSESSMENT: 1. Clinical presentation consistent with [id number] class I to II [place] [employer] left ventricular failure related to diastolic left ventricular dysfunction. 2. Coronary artery disease with evidence of demand ischemia and angina pectoris. 3. Hypertension. 4. Diabetes mellitus. 5. Hypercholesterolemia. 6. Abdominal aortic aneurysm, post endovascular repair. 7. Peripheral vascular disease. 8. History of deep venous thrombosis on Eliquis therapy. 9. Chronic obstructive pulmonary disease. 10. Probable obstructive sleep apnea. 11. Chronic kidney disease. RECOMMENDATION: 1. Continuation of Eliquis and aspirin therapies with caution. 2. Diminution of chloride therapy and titration of dosage. 3. Addition of JEAN PIRERE inhibitor or angiotensive receptor mitra therapy with caution considering the above noted chronic kidney disease. 4. IV Lasix therapy. 5. Echocardiography for evaluation of left ventricular systolic function and the above noted heart murmur. Further recommendation will depend upon response to above therapy adjustments and results of above planned echocardiography study. Above was reviewed and discussed in detail with the patient. Thank you for your kind referral. ARTHUR RAMIREZ M.D. [id number]
[2019-02-17] MEDS ORDERED: PT OWN MED DRAWER 7, Y5N ONE ×2 (16:54→22:04)
[2019-02-17] MEDS: PRAMIPEXOLE DIHYDROCHLORIDE 0.125 MG TABLET PO SCH (22:04)
[2019-02-18 06:25] LABS: BASO % 0.8 % (0-2.0); EOS % 0.9 % (0-4.5); HEMATOCRIT 35.2 % (32.4-45.2); HEMOGLOBIN 11.7 GM/dL (10.7-15.3); LYMPH % 12.1 % (8-40); MCH 28.7 pg (25.7-33.7); MCHC 33.2 g/dl (32.0-36.0); MEAN CELL VOLUME 86.7 fl (80-96); MEAN PLT VOLUME 7.2 fl (7.5-11.1); MONO % 6.2 % (3.8-10.2); PLATELET COUNT 430 K/MM3 (134-434); RBC 4.06 M/mm3 (3.60-5.2); RDW 12.7 % (11.6-15.6); WHITE BLOOD COUNT 9.9 K/mm3 (4.0-10.0)
[2019-02-18] MEDS: INSULIN SLIDING SCALE (NOVOLOG) 1 VIAL SQ SCH ×3 (06:37→18:17)
[2019-02-18 06:40] LABS: ALBUMIN 2.8 g/dl (3.4-5.0); BILIRUBIN,TOTAL 0.7 mg/dL (0.2-1); CALCIUM 8.6 mg/dL (8.5-10.1); CREATININE 1.2 mg/dL (0.55-1.3); MAGNESIUM 1.7 mg/dL (1.8-2.4); PHOSPHOROUS 3.9 mg/dL (2.5-4.9); POTASSIUM 3.6 mmol/L (3.5-5.1); TOT PROT 6.4 g/dl (6.4-8.2)
[2019-02-18] MEDS: LIPASE/PROTEASE/AMYLASE 6,000 UNIT CAPSULE PO SCH ×2 (08:41→18:20)
--- NOTE | 2019-02-18 09:43 | PN ---
Progress Note, Physician History of Present Illness: Dyspnea and LE edema resolving with diuresis. - Current Medication List Current Medications: Active Medications Apixaban (Eliquis -) 5 mg PO BID [facility] Apixaban (Eliquis -) 10 mg PO BID [facility] Stop: 02/23/19 21:59 Last Admin: 02/17/19 22:02 Dose: 10 mg Aspirin (Asa -) 81 mg PO DAILY [facility] Last Admin: 02/17/19 10:30 Dose: 81 mg Calcium/Vitamin D (Oscal 250 Mg+D -) 1 tab PO BID [facility] Last Admin: 02/17/19 22:02 Dose: 1 tab Carvedilol (Coreg -) 3.125 mg PO BID [facility] Last Admin: 02/17/19 22:02 Dose: 3.125 mg Ezetimibe (Zetia -) 10 mg PO DAILY [facility] Last Admin: 02/17/19 10:31 Dose: 10 mg Furosemide (Lasix Injection -) 40 mg IVPUSH DAILY [facility] Last Admin: 02/17/19 10:32 Dose: 40 mg Insulin Aspart (Novolog Vial Sliding Scale -) 1 vial SQ TIDAC [facility]; Protocol Last Admin: 02/18/19 06:37 Dose: Not Given Multivit/Ca Carb/B Cmplx/FA/Prenat (Nephro-Lisa -) 1 tablet PO DAILY [facility] Last Admin: 02/17/19 10:30 Dose: 1 tablet Pancrelipase (Creon Dr 6,000 Units Capsule) 4 cap PO BIDWM [facility] Last Admin: 02/17/19 17:02 Dose: 4 cap Pantoprazole Sodium (Protonix -) 40 mg PO DAILY [facility] Last Admin: 02/17/19 10:30 Dose: 40 mg Pramipexole Dihydrochloride (Mirapex -) 0.125 mg PO HS [facility] Last Admin: 02/17/19 22:04 Dose: 0.125 mg - Objective Vital Signs: Vital Signs Temperature 97.6 F 02/18/19 06:00 Pulse Rate 86 02/18/19 06:00 Respiratory Rate 20 02/18/19 06:00 Blood Pressure 107/73 02/18/19 06:00 O2 Sat by Pulse Oximetry (%) 97 02/17/19 20:20 Constitutional: Yes: No Distress, Calm Neck: Yes: Supple Cardiovascular: Yes: Regular Rate and Rhythm, Murmur (2/6 SM) Respiratory: Yes: Regular, Diminished, On Nasal O2 Gastrointestinal: Yes: Normal Bowel Sounds, Soft, Abdomen, Obese Edema: No Labs: CBC, BMP 02/18/19 05:30 02/18/19 05:30 - ....Imaging EKG: Report Reviewed (Tele: NSR) Problem List - Problems (1) Acute kidney injury superimposed on chronic kidney disease Code(s): N17.9 - ACUTE KIDNEY FAILURE, UNSPECIFIED; N18.9 - CHRONIC KIDNEY DISEASE, UNSPECIFIED (2) Diabetes Code(s): E11.9 - TYPE 2 DIABETES MELLITUS WITHOUT COMPLICATIONS Qualifiers: Diabetes mellitus type: type 2 (3) HFrEF (heart failure with reduced ejection fraction) Code(s): I50.20 - UNSPECIFIED SYSTOLIC (CONGESTIVE) HEART FAILURE Qualifiers: Heart failure chronicity: acute on chronic Qualified Code(s): I50.23 - Acute on chronic systolic (congestive) heart failure (4) DVT (deep venous thrombosis) Code(s): I82.409 - ACUTE EMBOLISM AND THOMBOS UNSP DEEP VN UNSP LOWER EXTREMITY Qualifiers: DVT location: lower extremity Affected thrombotic vein of extremity: popliteal Chronicity: chronic Laterality: right Qualified Code(s): I82.531 - Chronic embolism and thrombosis of right popliteal vein (5) Diabetes mellitus type 2 in obese Code(s): E11.9 - TYPE 2 DIABETES MELLITUS WITHOUT COMPLICATIONS; E66.9 - OBESITY , UNSPECIFIED (6) Elevated cholesterol Code(s): E78.0 - PURE HYPERCHOLESTEROLEMIA * DO NOT USE * (7) History of endovascular stent graft for abdominal aortic aneurysm Code(s): Z95.828 - PRESENCE OF OTHER VASCULAR IMPLANTS AND GRAFTS (8) Hyperlipidemia Code(s): E78.5 - HYPERLIPIDEMIA, UNSPECIFIED Qualifiers: Hyperlipidemia type: pure hypercholesterolemia Qualified Code(s): E78.00 - Pure hypercholesterolemia, unspecified; E78.0 - Pure hypercholesterolemia (9) Hypertension associated with diabetes Code(s): E11.59 - TYPE 2 DIABETES MELLITUS WITH OTH CIRCULATORY COMPLICATIONS; I10 - ESSENTIAL (PRIMARY) HYPERTENSION (10) Peripheral arterial disease Code(s): I73.9 - PERIPHERAL VASCULAR DISEASE, UNSPECIFIED Assessment/Plan 05/24/2016 Right popliteal and post tibial vein DVT 1. Clinical presentation consistent with acute on chronic class I-II NYHA classifcation LV failure related to diastolic LV dysfunction 2. CAD with evidence of demand ischemia angina pectoris 3. HTN 4. DM 5. Hypercholesterolemia 6. Heart murmur 7. History of AAA post EVAR 8. History of DVT in 2016 on Eliquis 9. COPD 10. Probable POOJA 11. Chronic renal insufficiency PLAN: 1. Continue Eliquis and ASA therapies with caution, verify Eliquis dose and duration of therapy with Dr. Mcclain 2. Continuation of Coreg 3.125 bid and further titration of dosage as needed and as tolerated, zetia 10 qd 3. Resume losartan 25 qd and uptitrate with caution considering the above-noted chronic kidney disease now that renal fxn improving 4. Continuation of IV Lasix therapy with monitor diuretic response, renal fxn and electrolytes 5. Echocardiography for evaluation of left ventricular systolic function and the above-noted heart murmur Further recommendation will depend upon response to above therapy adjustments and results of above planned echocardiography study
[2019-02-18] MEDS: ASPIRIN 81 MG CHEWABLE TABLETS PO SCH (10:41)
[2019-02-18] MEDS: VITAMIN B COMP W-C 1 EA TABLET PO SCH (10:42)
[2019-02-18] MEDS: CARVEDILOL 3.125 MG TABLET (FP) PO SCH ×2 (10:42→22:59)
[2019-02-18] MEDS: FUROSEMIDE 40 MG/4 ML INJECTABLE VIAL IVPUSH SCH (10:42)
[2019-02-18] MEDS: LOSARTAN POTASSIUM 25 MG TABLET PO SCH (10:42)
[2019-02-18] MEDS: CALCIUM 250MG/VIT-D 125 UNITS 1 COMBO TABLET PO SCH ×2 (10:43→22:59)
[2019-02-18] MEDS: PANTOPRAZOLE 40 MG TABLET (FP) PO SCH (10:43)
[2019-02-18] MEDS: EZETIMIBE 10 MG TABLET (FP) PO SCH (10:43)
[2019-02-18] MEDS ORDERED: MAGNESIUM SULF 50% (8.12 MEQ/2 ML-1 GM VIAL) IVPB ONE (11:18)
--- NOTE | 2019-02-18 11:21 | PN ---
Progress Note, Physician Chief Complaint: patient seen and examined says her breathing and leg swelling better spoke to her PMD patient not on eliquis anymore h/o dvt in 2016 - Current Medication List Current Medications: Active Medications Aspirin (Asa -) 81 mg PO DAILY [facility] Last Admin: 02/18/19 10:41 Dose: 81 mg Calcium/Vitamin D (Oscal 250 Mg+D -) 1 tab PO BID [facility] Last Admin: 02/18/19 10:43 Dose: 1 tab Carvedilol (Coreg -) 3.125 mg PO BID [facility] Last Admin: 02/18/19 10:42 Dose: 3.125 mg Ezetimibe (Zetia -) 10 mg PO DAILY [facility] Last Admin: 02/18/19 10:43 Dose: 10 mg Furosemide (Lasix Injection -) 40 mg IVPUSH DAILY [facility] Last Admin: 02/18/19 10:42 Dose: 40 mg Insulin Aspart (Novolog Vial Sliding Scale -) 1 vial SQ TIDAC [facility]; Protocol Last Admin: 02/18/19 06:37 Dose: Not Given Losartan Potassium (Cozaar -) 25 mg PO DAILY [facility] Last Admin: 02/18/19 10:42 Dose: 25 mg Multivit/Ca Carb/B Cmplx/FA/Prenat (Nephro-Lisa -) 1 tablet PO DAILY [facility] Last Admin: 02/18/19 10:42 Dose: 1 tablet Pancrelipase (Creon Dr 6,000 Units Capsule) 4 cap PO BIDWM [facility] Last Admin: 02/18/19 08:41 Dose: 4 cap Pantoprazole Sodium (Protonix -) 40 mg PO DAILY [facility] Last Admin: 02/18/19 10:43 Dose: 40 mg Pramipexole Dihydrochloride (Mirapex -) 0.125 mg PO HS [facility] Last Admin: 02/17/19 22:04 Dose: 0.125 mg - Objective Vital Signs: Vital Signs Temperature 98.3 F 02/18/19 10:28 Pulse Rate 90 02/18/19 10:28 Respiratory Rate 18 02/18/19 10:28 Blood Pressure 118/86 02/18/19 10:28 O2 Sat by Pulse Oximetry (%) 97 02/17/19 20:20 Constitutional: Yes: Calm Cardiovascular: Yes: Regular Rate and Rhythm, S1, S2 (decreased) Gastrointestinal: Yes: Normal Bowel Sounds, Soft Edema: Yes Labs: CBC, BMP 02/18/19 05:30 02/18/19 05:30 Problem List - Problems (1) Acute kidney injury superimposed on chronic kidney disease Assessment/Plan: creatineine back to baseline ARB on hold for now BP is well control will hold for now Code(s): N17.9 - ACUTE KIDNEY FAILURE, UNSPECIFIED; N18.9 - CHRONIC KIDNEY DISEASE, UNSPECIFIED (2) Diabetes Assessment/Plan: sliding scale takes metformin and glipized at home Code(s): E11.9 - TYPE 2 DIABETES MELLITUS WITHOUT COMPLICATIONS Qualifiers: Diabetes mellitus type: type 2 (3) HFrEF (heart failure with reduced ejection fraction) Assessment/Plan: iv lasix echo ordered cardiology on board weight is down from 182 to 180 Code(s): I50.20 - UNSPECIFIED SYSTOLIC (CONGESTIVE) HEART FAILURE Qualifiers: Heart failure chronicity: acute on chronic Qualified Code(s): I50.23 - Acute on chronic systolic (congestive) heart failure (4) Hyperlipidemia Assessment/Plan: statin zetia Code(s): E78.5 - HYPERLIPIDEMIA, UNSPECIFIED Qualifiers: Hyperlipidemia type: pure hypercholesterolemia Qualified Code(s): E78.00 - Pure hypercholesterolemia, unspecified; E78.0 - Pure hypercholesterolemia (5) Swelling of lower extremity Assessment/Plan: iv lasix doppler of legs h/o dvt in 2016 was on eliquis then stopped Code(s): M79.89 - OTHER SPECIFIED SOFT TISSUE DISORDERS
[2019-02-18] MEDS ORDERED: MAGNESIUM CITRATE 300 ML BOTTLE PO ONE (11:24)
--- NOTE | 2019-02-18 13:13 | ECHO ---
Name: SHY GILLILAND Exam:Adult Echocardiogram Study Date: 02/18/2019 11:50 AM Age: 78 yrs Reason For Study: CHF Height: 59 in Weight: 182 lb BSA: 1.8 m2 MMode/2D Measurements & Calculations IVSd: 0.95 cm Ao root diam: 3.0 cm LVIDd: 2.4 cm LA dimension: 2.8 cm LVIDs: 1.7 cm LVPWd: 0.87 cm EDV(Teich): 19.2 ml LVOT diam: 2.0 cm ESV(Teich): 8.5 ml LAV (MOD-bp): 35.0 ml Doppler Measurements & Calculations MV E max beck: 52.8 cm/sec Ao V2 max: 156.1 cm/sec MV A max beck: 83.4 cm/sec Ao max P.7 mmHg MV E/A: 0.63 MV dec time: 0.12 sec MARISELA(V,D): 2.0 cm2 LV V1 max P.2 mmHg TR max beck: 265.0 cm/sec LV V1 max: 102.7 cm/sec TR max P.1 mmHg PA V2 max: 78.7 cm/sec PI end-d beck: 111.3 cm/sec PA max P.5 mmHg Med Peak E' Beck: 6.1 cm/sec Med E/e': 8.6 Lat Peak E' Beck: 7.9 cm/sec Lat E/e': 6.7 Procedure The study was technically adequate with some images being suboptimal in quality. Left Ventricle The left ventricle is normal in size. The left ventricle is hyperdynamic. Ejection Fraction = >70%. G rade I diastolic dysfunction, (abnormal relaxation pattern). Right Ventricle The right ventricle is mild to moderately dilated. The right ventricular systolic function is mild to moderately reduced. Atria The left atrial size is normal. Borderline right atrial enlargement. Mitral Valve The mitral valve is not well visualized. There is mild mitral annular calcification. There is trace m itral regurgitation. Tricuspid Valve The tricuspid valve is not well visualized, but is grossly normal. There is moderate tricuspid regurg itation. Right ventricular systolic pressure is normal. Aortic Valve There is mild aortic sclerosis.;. The aortic valve opens well. The aortic valve is trileaflet. No aor tic regurgitation is present. Pulmonic Valve The pulmonic valve is not well visualized. Great Vessels The aortic root is normal size. Pericardium/Pleura There is no pericardial effusion. Interpretation Summary There is no comparison study available. The right ventricle is mild to moderately dilated. There is trace mitral regurgitation. The left ventricle is normal in size. The left ventricle is hyperdynamic. Ejection Fraction = >70%. There is moderate tricuspid regurgitation. Borderline right atrial enlargement. Maurilio Ibanez MD 02/18/2019 01:13 PM
[2019-02-18] MEDS: ALBUTEROL SO4 2.5/IPRATROPIUM 0.5 INH SOL 3 ML VIAL.NEB. NEB SCH ×2 (13:49→20:05)
--- NOTE | 2019-02-18 16:21 | PN ---
Progress Note (short form) - Note Progress Note: Renal follow up for BRENNON Pt seen and examined at the bedside awake and alert feels a little better no cp, abd pain, N/VD making urine Vital Signs Temperature 97.8 F 02/18/19 15:42 Pulse Rate 89 02/18/19 15:42 Respiratory Rate 20 02/18/19 15:42 Blood Pressure 99/69 02/18/19 15:42 O2 Sat by Pulse Oximetry (%) 95 02/18/19 09:00 Intake & Output 02/15/19 02/16/19 02/17/19 02/18/19 23:59 23:59 23:59 23:59 Intake Total 150 1090 1190 1150 Output Total 400 250 Balance 150 706 514 8723 Weight 82.554 kg 82.282 kg 82.191 kg 82.01 kg NAD no JVD RRR, no M/R CTA, no rales, dec BS, no wheeze soft NT/ND no LE edema, clubbing or cyanosis CBC, BMP 02/18/19 05:30 02/18/19 05:30 Current Medications Albuterol/Ipratropium (Duoneb -) 1 amp NEB RTID [facility] Last Admin: 02/18/19 13:49 Dose: 1 amp Aspirin (Asa -) 81 mg PO DAILY [facility] Last Admin: 02/18/19 10:41 Dose: 81 mg Atorvastatin Calcium (Lipitor -) 20 mg PO [facility] Calcium/Vitamin D (Oscal 250 Mg+D -) 1 tab PO BID [facility] Last Admin: 02/18/19 10:43 Dose: 1 tab Carvedilol (Coreg -) 3.125 mg PO BID [facility] Last Admin: 02/18/19 10:42 Dose: 3.125 mg Ezetimibe (Zetia -) 10 mg PO DAILY [facility] Last Admin: 02/18/19 10:43 Dose: 10 mg Furosemide (Lasix Injection -) 40 mg IVPUSH DAILY [facility] Last Admin: 02/18/19 10:42 Dose: 40 mg Glipizide (Glucotrol -) 5 mg PO BID@0700,1630 [facility] Insulin Aspart (Novolog Vial Sliding Scale -) 1 vial SQ TIDAC [facility]; Protocol Last Admin: 02/18/19 11:40 Dose: Not Given Losartan Potassium (Cozaar -) 25 mg PO DAILY [facility] Last Admin: 02/18/19 10:42 Dose: 25 mg Multivit/Ca Carb/B Cmplx/FA/Prenat (Nephro-Lisa -) 1 tablet PO DAILY [facility] Last Admin: 02/18/19 10:42 Dose: 1 tablet Pancrelipase (Creon Dr 6,000 Units Capsule) 4 cap PO BIDWM [facility] Last Admin: 02/18/19 08:41 Dose: 4 cap Pantoprazole Sodium (Protonix -) 40 mg PO DAILY [facility] Last Admin: 02/18/19 10:43 Dose: 40 mg Pramipexole Dihydrochloride (Mirapex -) 0.125 mg PO HS [facility] Last Admin: 02/17/19 22:04 Dose: 0.125 mg 78 year old woman with hx of AAA s/p endovascular repair 2016, PVD, HTN, HLD, DM2 who presented with complaints of cough and admitted for heart failure with Cr of 1.6->1.3. #BRENNON vs. CKD #SOB with HF #Hypertension #DM2 Renal function improved and stable Urine studies did not show significant proteinuria on Losartan 25mg Daily continue Lasix as per primary CXR w/o effusions ECHO as per cardiology goal BP < 130/80 given CKD/DM Thank you Will follow Maurilio Escobar DO
[2019-02-18] MEDS ORDERED: PT OWN MED DRAWER 7, Y5N ONE ×2 (18:03→18:27)
[2019-02-18] MEDS: glipiZIDE 5 MG TABLET (FP) PO SCH (18:17)
[2019-02-18] MEDS: ATORVASTATIN CA 20 MG TABLET (FP) PO SCH (22:58)
[2019-02-18] MEDS: PRAMIPEXOLE DIHYDROCHLORIDE 0.125 MG TABLET PO SCH (22:59)
[2019-02-19] MEDS: glipiZIDE 5 MG TABLET (FP) PO SCH ×2 (06:00→18:56)
[2019-02-19] MEDS: INSULIN SLIDING SCALE (NOVOLOG) 1 VIAL SQ SCH ×3 (06:00→18:53)
[2019-02-19 07:38] LABS: BASO % 0.7 % (0-2.0); EOS % 0.9 % (0-4.5); HEMATOCRIT 35.4 % (32.4-45.2); HEMOGLOBIN 11.5 GM/dL (10.7-15.3); LYMPH % 13.2 % (8-40); MCH 28.7 pg (25.7-33.7); MCHC 32.6 g/dl (32.0-36.0); MEAN PLT VOLUME 7.3 fl (7.5-11.1); MONO % 6.6 % (3.8-10.2); NEUT % 78.6 % (42.8-82.8); PLATELET COUNT 417 K/MM3 (134-434); RBC 4.02 M/mm3 (3.60-5.2); RDW 12.7 % (11.6-15.6); WHITE BLOOD COUNT 8.9 K/mm3 (4.0-10.0)
[2019-02-19 08:01] LABS: ALBUMIN 2.9 g/dl (3.4-5.0); BILIRUBIN,TOTAL 0.7 mg/dL (0.2-1); CALCIUM 8.7 mg/dL (8.5-10.1); CREATININE 1.2 mg/dL (0.55-1.3); MAGNESIUM 2.1 mg/dL (1.8-2.4); POTASSIUM 4.1 mmol/L (3.5-5.1); TOT PROT 6.4 g/dl (6.4-8.2)
[2019-02-19] MEDS: ALBUTEROL SO4 2.5/IPRATROPIUM 0.5 INH SOL 3 ML VIAL.NEB. NEB SCH ×3 (08:10→20:26)
--- NOTE | 2019-02-19 10:21 | PN ---
Progress Note, Physician Chief Complaint: Events noted Less SOB History of Present Illness: Patient was seen and examined. Awake and alert. Chart was reviewed Denies chest pain or palpitations. Less SOB - Current Medication List Current Medications: Active Medications Albuterol/Ipratropium (Duoneb -) 1 amp NEB RTID [facility] Last Admin: 02/18/19 20:05 Dose: 1 amp Aspirin (Asa -) 81 mg PO DAILY [facility] Last Admin: 02/18/19 10:41 Dose: 81 mg Atorvastatin Calcium (Lipitor -) 20 mg PO HS [facility] Last Admin: 02/18/19 22:58 Dose: 20 mg Calcium/Vitamin D (Oscal 250 Mg+D -) 1 tab PO BID [facility] Last Admin: 02/18/19 22:59 Dose: 1 tab Carvedilol (Coreg -) 3.125 mg PO BID [facility] Last Admin: 02/18/19 22:59 Dose: 3.125 mg Ezetimibe (Zetia -) 10 mg PO DAILY [facility] Last Admin: 02/18/19 10:43 Dose: 10 mg Furosemide (Lasix Injection -) 40 mg IVPUSH DAILY [facility] Last Admin: 02/18/19 10:42 Dose: 40 mg Glipizide (Glucotrol -) 5 mg PO BID@0700,1630 [facility] Last Admin: 02/19/19 06:00 Dose: 5 mg Insulin Aspart (Novolog Vial Sliding Scale -) 1 vial SQ TIDAC [facility]; Protocol Last Admin: 02/19/19 06:00 Dose: Not Given Losartan Potassium (Cozaar -) 25 mg PO DAILY [facility] Last Admin: 02/18/19 10:42 Dose: 25 mg Multivit/Ca Carb/B Cmplx/FA/Prenat (Nephro-Lisa -) 1 tablet PO DAILY [facility] Last Admin: 02/18/19 10:42 Dose: 1 tablet Pancrelipase (Creon Dr 6,000 Units Capsule) 4 cap PO BIDWM [facility] Last Admin: 02/18/19 18:20 Dose: 4 cap Pantoprazole Sodium (Protonix -) 40 mg PO DAILY [facility] Last Admin: 02/18/19 10:43 Dose: 40 mg Pramipexole Dihydrochloride (Mirapex -) 0.125 mg PO HS [facility] Last Admin: 02/18/19 22:59 Dose: 0.125 mg - Objective Vital Signs: Vital Signs Temperature 98.2 F 02/19/19 06:00 Pulse Rate 79 02/19/19 06:00 Respiratory Rate 20 02/19/19 06:00 Blood Pressure 107/73 02/19/19 06:00 O2 Sat by Pulse Oximetry (%) 97 02/18/19 21:00 Eyes: Yes: PERRL HENT: Yes: Atraumatic Neck: Yes: Supple Cardiovascular: Yes: Regular Rate and Rhythm, Murmur (SM), S1, S2 Respiratory: Yes: Diminished Gastrointestinal: Yes: Normal Bowel Sounds, Soft, Abdomen, Obese. No: Tenderness Edema: No Additional Findings/Remarks: - Review of Systems Constitutional: denies: Chills, Fever Cardiovascular: denies: Chest Pain. denies: Palpitations, (+) Shortness of Breath Respiratory: denies: Cough, Hemoptysis, Orthopnea, PND, (+) SOB, SOB on Exertion Gastrointestinal: denies: Diarrhea, Nausea. denies: Abdominal Pain, Constipation, Melena, Rectal Bleeding, Vomiting Genitourinary: denies: Dysuria, Hematuria Musculoskeletal: denies: Back Pain, Joint Pain Neurological: denies: Dizziness, Headache, Seizure, Syncope Labs: CBC, BMP 02/19/19 05:30 02/19/19 05:30 Problem List - Problems (1) Acute kidney injury superimposed on chronic kidney disease Code(s): N17.9 - ACUTE KIDNEY FAILURE, UNSPECIFIED; N18.9 - CHRONIC KIDNEY DISEASE, UNSPECIFIED (2) Diabetes Code(s): E11.9 - TYPE 2 DIABETES MELLITUS WITHOUT COMPLICATIONS Qualifiers: Diabetes mellitus type: type 2 (3) New onset of congestive heart failure Code(s): I50.9 - HEART FAILURE, UNSPECIFIED (4) Anemia Code(s): D64.9 - ANEMIA, UNSPECIFIED Qualifiers: Anemia type: unspecified type Qualified Code(s): D64.9 - Anemia, unspecified (5) DVT (deep venous thrombosis) Code(s): I82.409 - ACUTE EMBOLISM AND THOMBOS UNSP DEEP VN UNSP LOWER EXTREMITY Qualifiers: DVT location: lower extremity Affected thrombotic vein of extremity: popliteal Chronicity: chronic Laterality: right Qualified Code(s): I82.531 - Chronic embolism and thrombosis of right popliteal vein (6) Diabetes mellitus type 2 in obese Code(s): E11.9 - TYPE 2 DIABETES MELLITUS WITHOUT COMPLICATIONS; E66.9 - OBESITY , UNSPECIFIED (7) History of endovascular stent graft for abdominal aortic aneurysm Code(s): Z95.828 - PRESENCE OF OTHER VASCULAR IMPLANTS AND GRAFTS (8) Hyperlipidemia Code(s): E78.5 - HYPERLIPIDEMIA, UNSPECIFIED Qualifiers: Hyperlipidemia type: pure hypercholesterolemia Qualified Code(s): E78.00 - Pure hypercholesterolemia, unspecified; E78.0 - Pure hypercholesterolemia (9) Hypertension associated with diabetes Code(s): E11.59 - TYPE 2 DIABETES MELLITUS WITH OTH CIRCULATORY COMPLICATIONS; I10 - ESSENTIAL (PRIMARY) HYPERTENSION (10) Demand ischemia Code(s): I24.8 - OTHER FORMS OF ACUTE ISCHEMIC HEART DISEASE Assessment/Plan 1. Clinical presentation consistent with acute on chronic class I-II NYHA classifcation LV failure related to diastolic LV dysfunction 2. CAD with evidence of demand ischemia angina pectoris 3. HTN 4. DM 5. Hypercholesterolemia 6. Heart murmur 7. History of AAA post EVAR 8. History of DVT in 2016 on DOAC (Eliquis) 9. COPD 10. Probable POOJA 11. Chronic renal insufficiency PLAN: 1. Continue Eliquis and ASA therapies with caution (duration of therapy is to be further defined) 2. Continuation of Coreg 3.125 mg BID and further titration of dosage as needed and as tolerated. Continue Zetia 10 mg QD 3. Continue Losartan 25 mg QD as tolerated. Monitor renal function and electrolytes 4. Continue IV Lasix therapy with monitor renal function and electrolytes 5. Echocardiography was reviewed - normal LV systolic function and moderate TR Further plans are to follow Abdiel Lao MD
--- NOTE | 2019-02-19 10:44 | PN ---
Progress Note, Physician Chief Complaint: CHF Exacerbation Uncontrolled Diabetes Mellitus BRENNON History of Present Illness: U/S BLLE shows right popliteal DVT-perhaps old Previous U/S in 2016 showed-right popliteal and right posterior tibial DVT Used to be on Eliquis, which was stopped by PMD Less SOB BNP elevated Echocardiography-normal LV systolic function and moderate TR Seen by Cardiology - Current Medication List Current Medications: Active Medications Albuterol/Ipratropium (Duoneb -) 1 amp NEB RTID [facility] Last Admin: 02/18/19 20:05 Dose: 1 amp Aspirin (Asa -) 81 mg PO DAILY [facility] Last Admin: 02/18/19 10:41 Dose: 81 mg Atorvastatin Calcium (Lipitor -) 20 mg PO HS [facility] Last Admin: 02/18/19 22:58 Dose: 20 mg Calcium/Vitamin D (Oscal 250 Mg+D -) 1 tab PO BID [facility] Last Admin: 02/18/19 22:59 Dose: 1 tab Carvedilol (Coreg -) 3.125 mg PO BID [facility] Last Admin: 02/18/19 22:59 Dose: 3.125 mg Ezetimibe (Zetia -) 10 mg PO DAILY [facility] Last Admin: 02/18/19 10:43 Dose: 10 mg Furosemide (Lasix Injection -) 40 mg IVPUSH DAILY [facility] Last Admin: 02/18/19 10:42 Dose: 40 mg Glipizide (Glucotrol -) 5 mg PO BID@0700,1630 [facility] Last Admin: 02/19/19 06:00 Dose: 5 mg Insulin Aspart (Novolog Vial Sliding Scale -) 1 vial SQ TIDAC [facility]; Protocol Last Admin: 02/19/19 06:00 Dose: Not Given Losartan Potassium (Cozaar -) 25 mg PO DAILY [facility] Last Admin: 02/18/19 10:42 Dose: 25 mg Multivit/Ca Carb/B Cmplx/FA/Prenat (Nephro-Lisa -) 1 tablet PO DAILY [facility] Last Admin: 02/18/19 10:42 Dose: 1 tablet Pancrelipase (Creon Dr 6,000 Units Capsule) 4 cap PO BIDWM [facility] Last Admin: 02/18/19 18:20 Dose: 4 cap Pantoprazole Sodium (Protonix -) 40 mg PO DAILY [facility] Last Admin: 02/18/19 10:43 Dose: 40 mg Pramipexole Dihydrochloride (Mirapex -) 0.125 mg PO HS [facility] Last Admin: 02/18/19 22:59 Dose: 0.125 mg - Objective Vital Signs: Vital Signs Temperature 98.2 F 02/19/19 06:00 Pulse Rate 79 02/19/19 06:00 Respiratory Rate 20 02/19/19 06:00 Blood Pressure 107/73 02/19/19 06:00 O2 Sat by Pulse Oximetry (%) 97 02/18/19 21:00 Constitutional: Yes: Well Nourished, No Distress, Calm Cardiovascular: Yes: Regular Rate and Rhythm Respiratory: Yes: Regular Gastrointestinal: Yes: Normal Bowel Sounds Genitourinary: Yes: WNL Musculoskeletal: Yes: WNL Extremities: Yes: WNL Edema: Yes (RLE non pitting edema) Peripheral Pulses WNL: Yes Neurological: Yes: Alert, Oriented Psychiatric: Yes: Alert, Oriented Labs: CBC, BMP 02/19/19 05:30 02/19/19 05:30 Problem List - Problems (1) Acute kidney injury superimposed on chronic kidney disease Assessment/Plan: -Nephrology on board -Cr trending down -monitor trend Code(s): N17.9 - ACUTE KIDNEY FAILURE, UNSPECIFIED; N18.9 - CHRONIC KIDNEY DISEASE, UNSPECIFIED (2) Diabetes Assessment/Plan: -Uncontrolled with A1c at 8.4 -On Glipizide and metformin at home -D/C metformin in light of BRENNON/CKD -Add Januvai 25 mg po daily -Insulin sliding scale -Diabetic low sodium diet -RD consult -Caution advised when adding hypoglycemic agents in elderly Code(s): E11.9 - TYPE 2 DIABETES MELLITUS WITHOUT COMPLICATIONS Qualifiers: Diabetes mellitus type: type 2 (3) New onset of congestive heart failure Assessment/Plan: -Seen by cardiology -Echocardiography- normal LV systolic function and moderate TR -On IV furosemide -Daily weights -I&O's -Low sodium diabetic diet -On BB and ARB Code(s): I50.9 - HEART FAILURE, UNSPECIFIED (4) DVT (deep venous thrombosis) Assessment/Plan: -Likely chronic DVT as she had same DVT present in 2016 of right popliteal vein in 2016 -Hematology consult -Vascular consult for recommendation -Start DVT prophylaxis for now -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 -Decision to start AC directed to Hematology Code(s): I82.409 - ACUTE EMBOLISM AND THOMBOS UNSP DEEP VN UNSP LOWER EXTREMITY Qualifiers: DVT location: lower extremity Affected thrombotic vein of extremity: popliteal Chronicity: chronic Laterality: right Qualified Code(s): I82.531 - Chronic embolism and thrombosis of right popliteal vein (5) Hyperlipidemia Assessment/Plan: -LDL at 95 with LDL goal of <70 mg/dl -Not sure if she was taking atorvastatin at home -start atorvastatin 20 mg po HS -Also on Zetia 10 mg po daily -Dietary education -RD consult Code(s): E78.5 - HYPERLIPIDEMIA, UNSPECIFIED Qualifiers: Hyperlipidemia type: pure hypercholesterolemia Qualified Code(s): E78.00 - Pure hypercholesterolemia, unspecified; E78.0 - Pure hypercholesterolemia Assessment/Plan see problem list DVT prophylaxis Physical therapy
[2019-02-19] MEDS: LIPASE/PROTEASE/AMYLASE 6,000 UNIT CAPSULE PO SCH ×2 (11:00→18:56)
--- NOTE | 2019-02-19 11:14 | CONSULT ---
- Consultation REQUESTING PROVIDER: Bianca Currie CONSULT REQUEST: We have been asked to surgically evaluate this patient for RLE DVT (chronic) PCP: Greer Mcclain HPI: Called to eval 78F admitted with SOB x1 week --> CHF. A LE U/S was ordered to eval an old DVT. Again, identified is a RIGHT popliteal vein DVT ( also seen on U/S 2016). No complaints. PMHx: HTN, DL, DM2, PAD PSHx: AAA s/p endovascular repair 2016 Home Meds Albuterol/Ipratropium (Duoneb -) 1 amp NEB RTID [facility] Aspirin (Asa -) 81 mg PO DAILY [facility] Atorvastatin Calcium (Lipitor -) 20 mg PO HS [facility] Calcium/Vitamin D (Oscal 250 Mg+D -) 1 tab PO BID [facility] Carvedilol (Coreg -) 3.125 mg PO BID [facility] Ezetimibe (Zetia -) 10 mg PO DAILY [facility] Furosemide (Lasix Injection -) 40 mg IVPUSH DAILY [facility] Glipizide (Glucotrol -) 5 mg PO BID@0700,1630 [facility] Insulin Aspart (Novolog Vial Sliding Scale -) 1 vial SQ TIDAC [facility]; Protocol Losartan Potassium (Cozaar -) 25 mg PO DAILY [facility] Multivit/Ca Carb/B Cmplx/FA/Prenat (Nephro-Lisa -) 1 tablet PO DAILY [facility] Pancrelipase (Creon Dr 6,000 Units Capsule) 4 cap PO BIDWM [facility] Pantoprazole Sodium (Protonix -) 40 mg PO DAILY [facility] Pramipexole Dihydrochloride (Mirapex -) 0.125 mg PO HS [facility] Allergies: NKDA Last Vital Signs Temp Pulse Resp BP Pulse Ox 98.2 F 79 20 107/73 97 02/19/19 06:00 02/19/19 06:00 02/19/19 06:00 02/19/19 06:00 02/18/19 21:00 CBC, BMP 02/19/19 05:30 02/19/19 05:30 PE Constitutional: Well Nourished, NAD Eyes: Conjunctiva Clear, EOM Intact HENT: NC. AT. Neck: Supple, Trachea Midline Cardiovascular: RRR Respiratory: CTA Bilaterally Gastrointestinal: Soft. NT. ND. + bowel sounds in all quadrants Musculoskeletal: GMNVI bilat Extremities: Soft. NT. No edema Problem List - Problems (1) DVT (deep venous thrombosis) Assessment/Plan: 78 yo female admitted with SOB x1 week. Found to be in CHF. Elevated Cr and followed by Renal/Dr. Escobar. Patient has chronic DVT to her right popliteal vein as compared to imaging from 2016. No need for AC. Stockings for compression. No vascular intervention. Above plan discussed with my attending and agrees. On behalf of Dr. Currie, thank you for the opportunity to participate in your patient's care. Code(s): I82.409 - ACUTE EMBOLISM AND THOMBOS UNSP DEEP VN UNSP LOWER EXTREMITY Qualifiers: DVT location: lower extremity Affected thrombotic vein of extremity: popliteal Chronicity: chronic Laterality: right Qualified Code(s): I82.531 - Chronic embolism and thrombosis of right popliteal vein (2) Diabetes Code(s): E11.9 - TYPE 2 DIABETES MELLITUS WITHOUT COMPLICATIONS Qualifiers: Diabetes mellitus type: type 2 (3) Diabetes mellitus type 2 in obese Code(s): E11.9 - TYPE 2 DIABETES MELLITUS WITHOUT COMPLICATIONS; E66.9 - OBESITY , UNSPECIFIED (4) History of endovascular stent graft for abdominal aortic aneurysm Code(s): Z95.828 - PRESENCE OF OTHER VASCULAR IMPLANTS AND GRAFTS (5) Peripheral arterial disease Code(s): I73.9 - PERIPHERAL VASCULAR DISEASE, UNSPECIFIED Visit type - Case Type Case Type: ED Admission - New patient This patient is new to me today: Yes Date on this admission: 02/19/19
[2019-02-19] MEDS: ASPIRIN 81 MG CHEWABLE TABLETS PO SCH (11:15)
[2019-02-19] MEDS: PANTOPRAZOLE 40 MG TABLET (FP) PO SCH (11:16)
[2019-02-19] MEDS ORDERED: PT OWN MED DRAWER 7, Y5N ONE ×2 (11:17→18:54)
[2019-02-19] MEDS: EZETIMIBE 10 MG TABLET (FP) PO SCH (11:17)
[2019-02-19] MEDS: ENOXAPARIN NA (PORCINE) 40 MG/0.4 ML DISP.SYRIN SQ SCH (11:18)
[2019-02-19] MEDS: FUROSEMIDE 40 MG/4 ML INJECTABLE VIAL IVPUSH SCH ×2 (11:19→19:08)
[2019-02-19] MEDS: VITAMIN B COMP W-C 1 EA TABLET PO SCH (11:20)
[2019-02-19] MEDS: CALCIUM 250MG/VIT-D 125 UNITS 1 COMBO TABLET PO SCH ×2 (11:20→22:57)
[2019-02-19] MEDS: LOSARTAN POTASSIUM 25 MG TABLET PO SCH (14:17)
[2019-02-19] MEDS: CARVEDILOL 3.125 MG TABLET (FP) PO SCH ×2 (14:17→22:57)
[2019-02-19] MEDS: sitaGLIPtin PHOSPHATE 25 MG TABLET (FP) PO SCH (14:17)
[2019-02-19 17:17] VITALS: BMI 36.1
--- NOTE | 2019-02-19 18:28 | CONSULT ---
Consultation: REQUESTING PROVIDER: CONSULT REQUEST: We have been asked to medically evaluate this patient for chronic R pop dvt HISTORY OF PRESENT ILLNESS: This is a 78 yo F with PMH of RLW popliteal dvt since 2016 on eliquis, HTN, DL, DMII, PAD s/p stent, aortic aneurysm s/p stent, who presented due to sob with cough x 1w. admitted with acute on chronic CHF due to HFPEF. Hematology consulted due to chonic R pop DVT. patient denies RLE swelling or pain, denies pleuritic cp or palpitations, denies hemoptysis. compliant with eliquis and asa REVIEW OF SYSTEMS: CONSTITUTIONAL: Absent: fever, chills HEENT: Absent: rhinorrhea, nasal congestion, throat pain CARDIOVASCULAR: Absent: chest pain, syncope, palpitations RESPIRATORY: Absent: cough GASTROINTESTINAL: Absent: abdominal pain, abdominal distension GENITOURINARY: Absent: dysuria MUSCULOSKELETAL: Absent: , back pain, neck pain SKIN: Absent: rash, itching, pallor HEMATOLOGIC/IMMUNOLOGIC: Absent: easy bleeding, easy bruising ENDOCRINE: Absent: unexplained weight gain, unexplained weight loss NEUROLOGIC: Absent: headache, focal weakness or paresthesias PSYCHIATRIC: Absent: anxiety, depression PHYSICAL EXAMINATION Vital Signs - 24 hr 02/18/19 02/19/19 02/19/19 21:00 01:35 06:00 Temperature 98.0 F 97.8 F 98.2 F Pulse Rate 83 81 79 Respiratory 20 20 20 Rate Blood Pressure 102/62 107/68 107/73 O2 Sat by Pulse 97 Oximetry (%) 02/19/19 02/19/19 02/19/19 09:00 10:00 14:14 Temperature 98 F Pulse Rate 84 85 Respiratory 20 20 20 Rate Blood Pressure 101/70 102/68 O2 Sat by Pulse 95 Oximetry (%) GENERAL: Awake, alert, and fully oriented, in no acute distress. HEAD: Normal with no signs of trauma. EYES: Pupils equal, round and reactive to light, extraocular movements intact, sclera anicteric, conjunctiva clear. EARS, NOSE, THROAT: Moist mucous membranes. NECK: supple LUNGS: Breath sounds equal, clear to auscultation bilaterally HEART: Regular rate and rhythm, normal S1 and S2 ABDOMEN: Soft, nontender, not distended, normoactive bowel sounds MUSCULOSKELETAL: No CVA tenderness. UPPER EXTREMITIES: No peripheral edema. LOWER EXTREMITIES: No peripheral edema. Laboratory Results - last 24 hr 02/18/19 02/19/19 02/19/19 23:19 05:30 05:30 WBC 8.9 RBC 4.02 Hgb 11.5 Hct 35.4 MCV 88.0 MCH 28.7 MCHC 32.6 RDW 12.7 Plt Count 417 MPV 7.3 L Absolute Neuts (auto) 7.0 Neutrophils % 78.6 Lymphocytes % 13.2 Monocytes % 6.6 Eosinophils % 0.9 Basophils % 0.7 Nucleated RBC % 0 Sodium 141 Potassium 4.1 Chloride 104 Carbon Dioxide 29 Anion Gap 8 BUN 15 Creatinine 1.2 Est GFR (CKD-EPI)AfAm 50.84 Est GFR (CKD-EPI)NonAf 43.86 POC Glucometer 121 Random Glucose 160 H Hemoglobin A1c % Calcium 8.7 Magnesium 2.1 Total Bilirubin 0.7 AST 20 ALT 17 Alkaline Phosphatase 68 Total Protein 6.4 Albumin 2.9 L Triglycerides 136 Cholesterol 144 Total LDL Cholesterol 95 HDL Cholesterol 37 L 02/19/19 02/19/19 02/19/19 05:30 05:40 14:10 WBC RBC Hgb Hct MCV MCH MCHC RDW Plt Count MPV Absolute Neuts (auto) Neutrophils % Lymphocytes % Monocytes % Eosinophils % Basophils % Nucleated RBC % Sodium Potassium Chloride Carbon Dioxide Anion Gap BUN Creatinine Est GFR (CKD-EPI)AfAm Est GFR (CKD-EPI)NonAf POC Glucometer 158 167 Random Glucose Hemoglobin A1c % 8.4 H Calcium Magnesium Total Bilirubin AST ALT Alkaline Phosphatase Total Protein Albumin Triglycerides Cholesterol Total LDL Cholesterol HDL Cholesterol 02/19/19 17:05 WBC RBC Hgb Hct MCV MCH MCHC RDW Plt Count MPV Absolute Neuts (auto) Neutrophils % Lymphocytes % Monocytes % Eosinophils % Basophils % Nucleated RBC % Sodium Potassium Chloride Carbon Dioxide Anion Gap BUN Creatinine Est GFR (CKD-EPI)AfAm Est GFR (CKD-EPI)NonAf POC Glucometer 131 Random Glucose Hemoglobin A1c % Calcium Magnesium Total Bilirubin AST ALT Alkaline Phosphatase Total Protein Albumin Triglycerides Cholesterol Total LDL Cholesterol HDL Cholesterol Active Medications Generic Name Dose Route Start Last Admin Trade Name Freq PRN Reason Stop Dose Admin Albuterol/Ipratropium 1 amp 02/18/19 14:00 02/19/19 15:00 Duoneb - NEB 1 amp RTID [facility] Administration Aspirin 81 mg 02/16/19 10:00 02/19/19 11:15 Asa - PO 81 mg DAILY [facility] Administration Atorvastatin Calcium 20 mg 02/18/19 22:00 02/18/19 22:58 Lipitor - PO 20 mg HS [facility] Administration Calcium/Vitamin D 1 tab 02/15/19 22:00 02/19/19 11:20 Oscal 250 Mg+D - PO 1 tab BID [facility] Administration Carvedilol 3.125 mg 02/15/19 22:00 02/19/19 14:17 Coreg - PO 3.125 mg BID [facility] Administration Ezetimibe 10 mg 02/16/19 10:00 02/19/19 11:17 Zetia - PO 10 mg DAILY [facility] Administration Enoxaparin Sodium 40 mg 02/19/19 11:00 02/19/19 11:18 Lovenox - SQ 40 mg DAILY [facility] Administration Furosemide 40 mg 02/16/19 12:45 02/19/19 11:19 Lasix Injection - IVPUSH 40 mg DAILY [facility] Administration Glipizide 5 mg 02/18/19 16:30 02/19/19 06:00 Glucotrol - PO 5 mg BID@0700,1630 [facility] Administration Insulin Aspart 1 vial 02/16/19 07:00 02/19/19 14:17 Novolog Vial Sliding Scale - SQ Not Given TIDAC [facility] Protocol Losartan Potassium 25 mg 02/18/19 10:00 02/19/19 14:17 Cozaar - PO 25 mg DAILY [facility] Administration Multivit/Ca Carb/B Cmplx/FA/Prenat 1 tablet 02/16/19 10:00 02/19/19 11:20 Nephro-Lisa - PO 1 tablet DAILY [facility] Administration Pancrelipase 4 cap 02/16/19 08:00 02/18/19 18:[address] 6,000 Units Capsule PO 4 cap BIDWM [facility] Administration Pantoprazole Sodium 40 mg 02/16/19 10:00 02/19/19 11:16 Protonix - PO 40 mg DAILY [facility] Administration Pramipexole Dihydrochloride 0.125 mg 02/15/19 22:00 02/18/19 22:59 Mirapex - PO 0.125 mg HS [facility] Administration Sitagliptin Phosphate 25 mg 02/19/19 10:48 02/19/19 14:17 Januvia - PO 25 mg DAILY@0700 [facility] Administration ASSESSMENT/PLAN: This is a 78 yo F with PMH of RLW popliteal dvt since 2016 on eliquis, HTN, DL, DMII, PAD s/p stent, aortic aneurysm s/p stent, who presented due to sob with cough x 1w. chronic RLE politeal DVT CHF exacerbation -evaluated by vascular surgery, no new intervention necessary, do not recommend a/c any longer -since details of initial DVT are unavailable (provoked by AAA surgery?) and since it it unknown whether thrombophilia workup was performed at that time, cant make a recommendation about cessation of noac at this time. Dispo: We will continue to follow the patient. Thank you for this consultative opportunity. Problem List - Problems (1) Chronic deep vein thrombosis (DVT) Code(s): I82.509 - CHRONIC EMBOLISM AND THOMBOS UNSP DEEP VN UNSP LOW EXTRM (2) Diabetes Code(s): E11.9 - TYPE 2 DIABETES MELLITUS WITHOUT COMPLICATIONS Qualifiers: Diabetes mellitus type: type 2 (3) HFrEF (heart failure with reduced ejection fraction) Code(s): I50.20 - UNSPECIFIED SYSTOLIC (CONGESTIVE) HEART FAILURE Qualifiers: Heart failure chronicity: acute on chronic Qualified Code(s): I50.23 - Acute on chronic systolic (congestive) heart failure (4) DVT (deep venous thrombosis) Code(s): I82.409 - ACUTE EMBOLISM AND THOMBOS UNSP DEEP VN UNSP LOWER EXTREMITY Qualifiers: DVT location: lower extremity Affected thrombotic vein of extremity: popliteal Chronicity: chronic Laterality: right Qualified Code(s): I82.531 - Chronic embolism and thrombosis of right popliteal vein Visit type - Emergency Visit Emergency Visit: Yes ED Registration Date: 02/15/19 Care time: The patient presented to the Emergency Department on the above date and was hospitalized for further evaluation of their emergent condition. - New Patient This patient is new to me today: Yes Date on this admission: 02/19/19 - Critical Care Critical Care patient: No
[2019-02-19] MEDS ORDERED: FUROSEMIDE 40 MG TABLET (FP) PO ONE (19:25)
[2019-02-19] MEDS: ATORVASTATIN CA 20 MG TABLET (FP) PO SCH (22:57)
[2019-02-19] MEDS: PRAMIPEXOLE DIHYDROCHLORIDE 0.125 MG TABLET PO SCH (22:58)
[2019-02-20] MEDS: INSULIN SLIDING SCALE (NOVOLOG) 1 VIAL SQ SCH ×2 (06:30→12:23)
[2019-02-20] MEDS: glipiZIDE 5 MG TABLET (FP) PO SCH (06:30)
[2019-02-20] MEDS: sitaGLIPtin PHOSPHATE 25 MG TABLET (FP) PO SCH (06:30)
--- NOTE | 2019-02-20 06:39 | PN ---
Progress Note (short form) - Note Progress Note: Chief Complaint: Events noted, notes reviewed, dyspnea and bilateral lower extremity edema resolved, denies any chest pain History of Present Illness: Seen and examined on telemetry. Events noted, notes reviewed, dyspnea and bilateral lower extremity edema resolved, denies any chest pain - Current Medication List Current Medications Albuterol/Ipratropium (Duoneb -) 1 amp NEB RTID [facility] Last Admin: 02/19/19 20:26 Dose: 1 amp Aspirin (Asa -) 81 mg PO DAILY [facility] Last Admin: 02/19/19 11:15 Dose: 81 mg Atorvastatin Calcium (Lipitor -) 20 mg PO HS [facility] Last Admin: 02/19/19 22:57 Dose: 20 mg Calcium/Vitamin D (Oscal 250 Mg+D -) 1 tab PO BID [facility] Last Admin: 02/19/19 22:57 Dose: 1 tab Carvedilol (Coreg -) 3.125 mg PO BID [facility] Last Admin: 02/19/19 22:57 Dose: 3.125 mg Ezetimibe (Zetia -) 10 mg PO DAILY [facility] Last Admin: 02/19/19 11:17 Dose: 10 mg Enoxaparin Sodium (Lovenox -) 40 mg SQ DAILY [facility] Last Admin: 02/19/19 11:18 Dose: 40 mg Furosemide (Lasix Injection -) 40 mg IVPUSH DAILY [facility] Last Admin: 02/19/19 19:08 Dose: Not Given Glipizide (Glucotrol -) 5 mg PO BID@0700,1630 [facility] Last Admin: 02/20/19 06:30 Dose: 5 mg Insulin Aspart (Novolog Vial Sliding Scale -) 1 vial SQ TIDAC [facility]; Protocol Last Admin: 02/20/19 06:30 Dose: Not Given Losartan Potassium (Cozaar -) 25 mg PO DAILY [facility] Last Admin: 02/19/19 14:17 Dose: 25 mg Multivit/Ca Carb/B Cmplx/FA/Prenat (Nephro-Lisa -) 1 tablet PO DAILY [facility] Last Admin: 02/19/19 11:20 Dose: 1 tablet Pancrelipase (Creon Dr 6,000 Units Capsule) 4 cap PO BIDWM [facility] Last Admin: 02/19/19 18:56 Dose: 4 cap Pantoprazole Sodium (Protonix -) 40 mg PO DAILY [facility] Last Admin: 02/19/19 11:16 Dose: 40 mg Pramipexole Dihydrochloride (Mirapex -) 0.125 mg PO HS [facility] Last Admin: 02/19/19 22:58 Dose: 0.125 mg Sitagliptin Phosphate (Januvia -) 25 mg PO DAILY@0700 [facility] Last Admin: 02/20/19 06:30 Dose: 25 mg Review of Systems Cardiovascular: As noted above Respiratory: denies: Cough or Sputum Production Gastrointestinal: denies: Nausea, Vomiting, Diarrhea, Constipation or Abdominal Discomfort Musculoskeletal: No Symptoms Reported Endocrine: No Symptoms Reported - Objective Vital Signs: Last Vital Signs Temp Pulse Resp BP Pulse Ox 98.2 F 80 20 98/67 92 L 02/20/19 01:58 02/20/19 05:49 02/20/19 05:49 02/20/19 05:49 02/19/19 21:00 Intake & Output 02/17/19 02/18/19 02/19/19 02/20/19 23:59 23:59 23:59 23:59 Intake Total 1190 1410 660 Output Total 250 Balance 940 1410 660 Weight 181 lb 3.2 oz 180 lb 12.8 oz 179 lb Neck: Supple Negative JVD No Bruit Cardiovascular: S1 S2 Regular Rate and Rhythm Grade 2/6 JULY Respiratory: Diminished Breath Sounds Bilaterally Scattered Rhonchi Gastrointestinal: Soft Benign Normal Bowel Sounds Ext: Trace Edema Labs: CBC, BMP 02/19/19 05:30 02/19/19 05:30 Hepatic Panel Total Bilirubin 0.7 mg/dL (0.2-1) 02/19/19 05:30 AST 20 U/L (15-37) 02/19/19 05:30 ALT 17 U/L (13-61) 02/19/19 05:30 Alkaline Phosphatase 68 U/L (45-117) 02/19/19 05:30 Albumin 2.9 g/dl (3.4-5.0) L 02/19/19 05:30 Assessment/Plan ASSESSMENT: 1. Clinical presentation consistent with acute on chronic class I-II NYHA classifcation LV failure related to diastolic LV dysfunction, clinically resolved 2. CAD with evidence of demand ischemia angina pectoris, stable 3. HTN 4. DM 5. Hypercholesterolemia 6. Heart murmur- AV sclerosis 7. History of AAA post EVAR 8. History of DVT 9. COPD 10. Probable POOJA 11. Chronic renal insufficiency PLAN: 1. Continue ASA 2. From the cardiovascular point of view; if DVT was provoked and treated no indications for recycling collections driver Eliquis, if unprovoked consideration for residential therapy (Dr. Ernie Parr treating vascular surgeon) 2. Continue Coreg and further titration of dosage as needed and as tolerated 3. Continue Cozaar and further titration of dosage as needed and as tolerated with caution considering the above-noted chronic kidney disease 4. Continue Lasix therapy but change to PO 5. Continue Lipitor and Zetia 6. Can be D/C home from the cardiovascular point of view and F/U in the office for further cardiovascular evaluation Above was reviewed and discussed in detail with the patient Elizabeth Mon M.D.
--- NOTE | 2019-02-20 07:44 | PN ---
Teaching Attending Note Name of Resident: Nimo Hendrickson ATTENDING PHYSICIAN STATEMENT I saw and evaluated the patient. I reviewed the resident's note and discussed the case with the resident. I agree with the resident's findings and plan as documented. SUBJECTIVE: Patient seen and examined Presents with CHF, SOB. Currently denies chest pain and states improvement in dyspnea Last Vital Signs Temp Pulse Resp BP Pulse Ox 98.2 F 80 20 98/67 92 L 02/20/19 01:58 02/20/19 05:49 02/20/19 05:49 02/20/19 05:49 02/19/19 21:00 HEENT: ROBERT, EOM Intact Oropharynx: No thrush, No mucositis Neck: Supple Nodes: Without adenopathy Breasts: Without masses Cor: RSR, systolic murmur Lungs: diminished breath sounds bilaterally Abd: Soft, Normal bowel sounds, No organomegaly Ext:LE edema Skin: No rashes, Integument intact CBC, BMP 02/19/19 05:30 02/19/19 05:30 Current Medications Generic Name Dose Route Start Last Admin Trade Name Zeynep PRN Reason Stop Dose Admin Albuterol/Ipratropium 1 amp 02/18/19 14:00 02/19/19 20:26 Duoneb - NEB 1 amp RTID [facility] Administration Aspirin 81 mg 02/16/19 10:00 02/19/19 11:15 Asa - PO 81 mg DAILY [facility] Administration Atorvastatin Calcium 20 mg 02/18/19 22:00 02/19/19 22:57 Lipitor - PO 20 mg HS [facility] Administration Calcium/Vitamin D 1 tab 02/15/19 22:00 02/19/19 22:57 Oscal 250 Mg+D - PO 1 tab BID [facility] Administration Carvedilol 3.125 mg 02/15/19 22:00 02/19/19 22:57 Coreg - PO 3.125 mg BID [facility] Administration Ezetimibe 10 mg 02/16/19 10:00 02/19/19 11:17 Zetia - PO 10 mg DAILY [facility] Administration Enoxaparin Sodium 40 mg 02/19/19 11:00 02/19/19 11:18 Lovenox - SQ 40 mg DAILY [facility] Administration Furosemide 40 mg 02/16/19 12:45 02/19/19 19:08 Lasix Injection - IVPUSH Not Given DAILY [facility] Glipizide 5 mg 02/18/19 16:30 02/20/19 06:30 Glucotrol - PO 5 mg BID@0700,1630 [facility] Administration Insulin Aspart 1 vial 02/16/19 07:00 02/20/19 06:30 Novolog Vial Sliding Scale - SQ Not Given [facility] Protocol Losartan Potassium 25 mg 02/18/19 10:00 02/19/19 14:17 Cozaar - PO 25 mg DAILY [facility] Administration Multivit/Ca Carb/B Cmplx/FA/Prenat 1 tablet 02/16/19 10:00 02/19/19 11:20 Nephro-Lisa - PO 1 tablet DAILY [facility] Administration Pancrelipase 4 cap 02/16/19 08:00 02/19/19 18:56 Melissa Esparza 6,000 Units Capsule PO 4 cap BIDWM [facility] Administration Pantoprazole Sodium 40 mg 02/16/19 10:00 02/19/19 11:16 Protonix - PO 40 mg DAILY [facility] Administration Pramipexole Dihydrochloride 0.125 mg 02/15/19 22:00 02/19/19 22:58 Mirapex - PO 0.125 mg HS [facility] Administration Sitagliptin Phosphate 25 mg 02/19/19 10:48 02/20/19 06:30 Januvia - PO 25 mg DAILY@0700 [facility] Administration Impression: ASHD/CAD CHF H/O repair AAA H/O bilateral LE stents for PAD Chronic LE DVT on A/C Have reviewed cardiology note and vascular note. Cardiology- continue eliquis and ASA Vascular - no need for A/C Will attempt to obtain further details from Dr. Parr about past history of DVT and stent placements and ? need for a/c. OBJECTIVE: ASSESSMENT AND PLAN:
[2019-02-20] MEDS: ALBUTEROL SO4 2.5/IPRATROPIUM 0.5 INH SOL 3 ML VIAL.NEB. NEB SCH (08:10)
[2019-02-20] MEDS ORDERED: PT OWN MED DRAWER 7, Y5N ONE (08:45)
[2019-02-20] MEDS: LIPASE/PROTEASE/AMYLASE 6,000 UNIT CAPSULE PO SCH (08:53)
[2019-02-20 08:57] VITALS: BP 105/42; PULSE 90; TEMP 98
[2019-02-20] MEDS: PANTOPRAZOLE 40 MG TABLET (FP) PO SCH (10:36)
[2019-02-20] MEDS: CALCIUM 250MG/VIT-D 125 UNITS 1 COMBO TABLET PO SCH (10:37)
[2019-02-20] MEDS: ENOXAPARIN NA (PORCINE) 40 MG/0.4 ML DISP.SYRIN SQ SCH (10:37)
[2019-02-20] MEDS: VITAMIN B COMP W-C 1 EA TABLET PO SCH (10:37)
[2019-02-20] MEDS: ASPIRIN 81 MG CHEWABLE TABLETS PO SCH (10:37)
[2019-02-20] MEDS: LOSARTAN POTASSIUM 25 MG TABLET PO SCH (10:37)
[2019-02-20] MEDS: CARVEDILOL 3.125 MG TABLET (FP) PO SCH (10:37)
[2019-02-20] MEDS: EZETIMIBE 10 MG TABLET (FP) PO SCH (10:38)
[2019-02-20] MEDS: FUROSEMIDE 40 MG/4 ML INJECTABLE VIAL IVPUSH SCH (10:38)
[2019-02-20] MEDS ORDERED: SIMETHICONE 80 MG TAB.CHEW (FP) PO PRN (11:10)
[2019-02-20] MEDS ORDERED: FUROSEMIDE 40 MG TABLET (FP) PO SCH (11:15)
--- NOTE | 2019-02-20 14:13 | DS ---
Physical Examination Vital Signs: Vital Signs Temperature 98 F 02/20/19 08:55 Pulse Rate 90 02/20/19 08:55 Respiratory Rate 20 02/20/19 08:55 Blood Pressure 105/42 L 02/20/19 08:55 O2 Sat by Pulse Oximetry (%) 92 L 02/20/19 09:00 Findings/Remarks: this is a 78 y/o F with hx of HTN, DL, DMII, PAD s/p stent, aortic aneurysm s/p stent presented to the hospital for 1 week history of shortness of breath associated with cough, according the patient she was feeling fine until mother' s day when she started to develop SOB associated with her cough, she denied any fever but she did state that she felt cold few times. patient denied any chest pain, chest discomfort, palpitations, or LOC, she stated that her legs were swollen but the swelling has improved drastically over the past month. During her stay, her metformin was discontinued and she was diuresed with furosemide Labs: CBC, BMP 02/19/19 05:30 02/19/19 05:30 Discharge Summary Reason For Visit: NEW ONSET OF CHF Current Active Problems Acute kidney injury superimposed on chronic kidney disease (Acute) Chronic deep vein thrombosis (DVT) (Acute) Demand ischemia (Acute) Diabetes (Acute) HFrEF (heart failure with reduced ejection fraction) (Acute) New onset of congestive heart failure (Acute) Condition: Stable - Instructions Disposition: HOME - Home Medications Comprehensive Discharge Medication List: Ambulatory Orders Ezetimibe [Zetia -] 10 mg PO DAILY 05/24/12 Aclidinium [place] [Tudorza Pressair] 400 mcg IH BID 01/10/18 Aspirin 81 mg PO DAILY 01/10/18 Calcium 250Mg/Vit-D 125 Units [Oscal 250 mg+D -] 1 combo PO BID 01/10/18 Calcium Carbonate/Vitamin D3 [Oyster Shell 500-Vit D3 200 Tb] 1 each PO BID 08/19 Cetirizine HCl [Zyrtec -] 10 mg PO HS 01/10/18 Ergocalciferol [Drisdol -] 50,000 units PO DAILY 01/10/18 Ferrous Sulfate 325 mg PO DAILY 01/10/18 Lipase/Protease/Amylase [Creon Dr 24,000 Units Capsule] 1 each PO BID 01/10/18 Omeprazole 40 mg PO DAILY 01/10/18 Pramipexole Di-HCl [Mirapex] 0.125 mg PO HS 01/10/18 Vitamin B Complex 1 each PO DAILY 01/10/18 Atorvastatin Ca [Lipitor] 20 mg PO HS #30 tablet 02/20/19 Carvedilol [Coreg -] 3.125 mg PO BID #60 tablet 02/20/19 Glipizide [Glucotrol -] 5 mg PO BID@0700,1630 #60 tablet 02/20/19 Losartan Potassium [Cozaar -] 25 mg PO DAILY #30 tablet 02/20/19 Sitagliptin Phosphate [Januvia -] 25 mg PO DAILY@0700 #30 tab 02/20/19
[2019-02-23] MEDS ORDERED: APIXABAN 5 MG TABLET PO SCH (22:00)
== END 2019-02-20 14:30 | disposition home or self-care (01) | DRG 291 ==
LOC: JER 13:18 → JERBED 18:18 → J4W 20:02
PROVIDERS: ADMIT Family Medicine; ATTEND Family Medicine
DX: I13.0 Hypertensive heart and chronic kidney disease with heart failure and stage 1 through stage 4 chronic kidney disease, or unspecified chronic kidney disease (principal); I50.23 Acute on chronic systolic (congestive) heart failure; N17.9 Acute kidney failure, unspecified; I24.8 Other forms of acute ischemic heart disease; I82.531 Chronic embolism and thrombosis of right popliteal vein; I82.541 Chronic embolism and thrombosis of right tibial vein; I73.9 Peripheral vascular disease, unspecified; Z95.5 Presence of coronary angioplasty implant and graft; E78.5 Hyperlipidemia, unspecified; Z87.891 Personal history of nicotine dependence; J44.9 Chronic obstructive pulmonary disease, unspecified; E66.9 Obesity, unspecified; Z68.36 Body mass index [BMI] 36.0-36.9, adult; E11.22 Type 2 diabetes mellitus with diabetic chronic kidney disease; N18.9 Chronic kidney disease, unspecified; R01.1 Cardiac murmur, unspecified; G47.33 Obstructive sleep apnea (adult) (pediatric); I25.10 Atherosclerotic heart disease of native coronary artery without angina pectoris; E11.65 Type 2 diabetes mellitus with hyperglycemia; Z95.828 Presence of other vascular implants and grafts; Z79.84 Long term (current) use of oral hypoglycemic drugs; I36.1 Nonrheumatic tricuspid (valve) insufficiency; Z79.01 Long term (current) use of anticoagulants
CPT/HCPCS: 36415; 71045-TC-FY; 80053; 80061; 82436; 82550; 82553; 82565; 82962; 83036; 83721; 83735; 83880; 83930; 83935; 84100; 84133; 84156; 84300; 84484; 84540; 85025; 87205; 93005; 93010; 93306-TC; 93970-TC; 94640; 97116-GP; 97161-GP; 99283-25

== ENCOUNTER 2021-09-20 16:57 | Emergency (ER) | payer OTHER ==
[2021-09-20 17:13] VITALS: TEMP 98.2; BMI 27.3
[2021-09-20] MEDS ORDERED: METOCLOPRAMIDE HCL INJECTION 10 MG/2 ML VIAL ONE (17:55)
[2021-09-20] MEDS ORDERED: METOCLOPRAMIDE HCL INJECTION 10 MG/2 ML VIAL IVPUSH ONE (17:55)
[2021-09-20] MEDS ORDERED: LACTATED RINGERS SOLUTION 1000 ML INFUS.BAG IV ONE (17:56)
[2021-09-20 18:44] VITALS: BP 117/70; PULSE 86
[2021-09-20 18:51] LABS: BASO % 0.6 % (0-2.0); EOS % 0.8 % (0-4.5); HEMATOCRIT 34.1 % (32.4-45.2); HEMOGLOBIN 11.1 GM/dL (10.7-15.3); LYMPH % 19.9 % (8-40); MCH 27.2 pg (25.7-33.7); MCHC 32.6 g/dl (32.0-36.0); MEAN CELL VOLUME 83.4 fl (80-96); MEAN PLT VOLUME 6.9 fl (7.5-11.1); MONO % 10.8 % (3.8-10.2); NEUT % 67.9 % (42.8-82.8); PLATELET COUNT 390 10^3/uL (134-434); RBC 4.09 M/mm3 (3.60-5.2); RDW 14.7 % (11.6-15.6); WHITE BLOOD COUNT 7.7 K/mm3 (4.0-10.0)
[2021-09-20 19:35] LABS: CHLORIDE 103 mmol/L (98-107); SODIUM 143 mmol/L (136-145)
[2021-09-20 19:38] LABS: ALBUMIN 2.6 g/dl (3.4-5.0); ANION GAP 12 MMOL/L (8-16); CALCIUM 9.5 mg/dL (8.5-10.1); CO2 28 mmol/L (21-32); GLUCOSE,RANDOM 224 mg/dL (74-106); LIPASE 59 U/L (73-393)
[2021-09-20 19:41] LABS: CREATININE 1.5 mg/dL (0.55-1.3); SGOT/AST 40 U/L (15-37); SGPT/ALT 21 U/L (13-61)
[2021-09-20 19:42] LABS: BILIRUBIN,TOTAL 0.5 mg/dL (0.2-1); TOT PROT 8.8 g/dl (6.4-8.2)
[2021-09-20 19:43] LABS: ALK PHOS 88 U/L (45-117)
[2021-09-20 21:29] LABS: EPI CELLS 22 /uL (0-25.1); HYALINE CASTS 1 /uL (0-3.1); PH,URINE 5.5 (5.0-8.0); URINE APPEARANCE CLEAR; URINE BACTERIA 475 /uL (0-1359); URINE BILIRUBIN NEGATIVE (NEGATIVE); URINE COLOR YELLOW; URINE GLUCOSE (UA) 3+ (NEGATIVE); URINE KETONE 1+ (NEGATIVE); URINE LEUK ESTERASE NEGATIVE (NEGATIVE); URINE NITRITE NEGATIVE (NEGATIVE); URINE PROTEIN TRACE (NEGATIVE); URINE RBC 10 /uL (0-23.9); URINE UROBILINOGEN 0.2 mg/dL (0.2-1.0); URINE WBC 16 /uL (0-25.8)
[2021-09-20 21:48] LABS: YEAST FEW
== END 2021-09-20 23:08 | disposition home or self-care (01) ==
LOC: JER 16:57
PROC: 3E033GC Introduction of Other Therapeutic Substance into Peripheral Vein, Percutaneous Approach (ICD-10-PCS; principal; 2021-09-20)
DX: R11.2 Nausea with vomiting, unspecified (principal); N39.0 Urinary tract infection, site not specified
CPT/HCPCS: 36415; 80053; 81003; 82962; 83690; 84484; 85025; 93005; 93010; 96374; 99284-25; C9803; U0003; U0005

== ENCOUNTER 2021-10-16 09:06 | Inpatient (IN) | payer OTHER ==
[2021-10-16] MEDS ORDERED: ONDANSETRON 4 MG TABLET PO ONE (09:55)
[2021-10-16] MEDS ORDERED: ACETAMINOPHEN 1000 MG/100 ML BAG IVPB ONE (09:55)
[2021-10-16] MEDS ORDERED: SODIUM CHLORIDE 0.9% 500 ML INFUS.BAG IV ONE (09:55)
[2021-10-16] MEDS ORDERED: MAG HYDROX/AL HYDROX/SIMETH 30 ML UNIT-DOSE CUP PO ONE (09:56)
[2021-10-16] MEDS ORDERED: MAG HYDROX/AL HYDROX/SIMETH 30 ML UNIT-DOSE CUP ONE (10:11)
[2021-10-16] MEDS ORDERED: ONDANSETRON 4 MG/2 ML VIAL ONE (10:11)
[2021-10-16] MEDS ORDERED: ACETAMINOPHEN INJECTION 100 ML IVPB ONE (10:11)
[2021-10-16] MEDS ORDERED: FAMOTIDINE 20 MG/50 ML IVPB 20 MG/50 ML MG IVPB ONE ×2 (10:35→10:38)
[2021-10-16 10:43] LABS: BASO % 0.4 % (0-2.0); EOS % 0.7 % (0-4.5); HEMATOCRIT 33.5 % (32.4-45.2); HEMOGLOBIN 10.9 GM/dL (10.7-15.3); LYMPH % 24.7 % (8-40); MCH 27.6 pg (25.7-33.7); MCHC 32.5 g/dl (32.0-36.0); MEAN CELL VOLUME 84.7 fl (80-96); MEAN PLT VOLUME 6.2 fl (7.5-11.1); MONO % 11.2 % (3.8-10.2); PLATELET COUNT 268 10^3/uL (134-434); RBC 3.95 M/mm3 (3.60-5.2); RDW 16.3 % (11.6-15.6); WHITE BLOOD COUNT 4.6 K/mm3 (4.0-10.0)
[2021-10-16 11:10] LABS: CHLORIDE 106 mmol/L (98-107); SODIUM 141 mmol/L (136-145)
[2021-10-16 11:13] LABS: ALBUMIN 2.6 g/dl (3.4-5.0); ANION GAP 8 MMOL/L (8-16); BLOOD UREA NITROGEN 36.1 mg/dL (7-18); CALCIUM 9.3 mg/dL (8.5-10.1); CO2 27 mmol/L (21-32); GLUCOSE,RANDOM 146 mg/dL (74-106); LIPASE 36 U/L (73-393)
[2021-10-16 11:16] LABS: CREATININE 0.9 mg/dL (0.55-1.3); SGOT/AST 25 U/L (15-37); SGPT/ALT 19 U/L (13-61)
[2021-10-16 11:18] LABS: BILIRUBIN,TOTAL 0.7 mg/dL (0.2-1); TOT PROT 8.3 g/dl (6.4-8.2)
[2021-10-16 11:19] LABS: ALK PHOS 70 U/L (45-117)
[2021-10-16 15:08] LABS: URINE APPEARANCE CLOUDY; URINE BILIRUBIN NEGATIVE (NEGATIVE); URINE COLOR DK YELLOW; URINE GLUCOSE (UA) 1+ (NEGATIVE); URINE KETONE 1+ (NEGATIVE); URINE LEUK ESTERASE NEGATIVE (NEGATIVE); URINE NITRITE NEGATIVE (NEGATIVE); URINE PROTEIN TRACE (NEGATIVE); URINE UROBILINOGEN 0.2 mg/dL (0.2-1.0)
[2021-10-16] MEDS ORDERED: CARVEDILOL 3.125 MG TABLET (FP) PO ONE (18:07)
[2021-10-16] MEDS ORDERED: ATORVASTATIN CA 20 MG TABLET (FP) PO ONE (18:09)
[2021-10-16] MEDS ORDERED: CARVEDILOL 3.125 MG TABLET (FP) ONE (18:36)
[2021-10-16] MEDS ORDERED: ATORVASTATIN CA 20 MG TABLET (FP) ONE (18:36)
[2021-10-16] MEDS ORDERED: ALBUTEROL SO4 2.5/IPRATROPIUM 0.5 INH SOL 3 ML VIAL.NEB. NEB SCH (20:00)
[2021-10-16] MEDS ORDERED: ALBUTEROL SO4 HFA INHALER IH PRN (20:48)
[2021-10-16 21:04] VITALS: BMI 29.0
[2021-10-16] MEDS: HEPARIN NA (PORCINE) 5,000 UNITS/ML 1ML VIAL SQ SCH (21:44)
[2021-10-17] MEDS: FUROSEMIDE 40 MG TABLET (FP) PO SCH ×2 (06:08→14:20)
[2021-10-17] MEDS: HEPARIN NA (PORCINE) 5,000 UNITS/ML 1ML VIAL SQ SCH ×3 (06:08→21:35)
[2021-10-17] MEDS: INSULIN SLIDING SCALE (NOVOLOG) 1 VIAL SQ SCH ×3 (06:17→16:29)
[2021-10-17] MEDS ORDERED: INSULIN SLIDING SCALE (NOVOLOG) 1 VIAL SQ SCH (07:00)
[2021-10-17] MEDS ORDERED: LOSARTAN POTASSIUM 50 MG TABLET PO SCH (10:00)
[2021-10-17] MEDS: ASPIRIN 81 MG CHEWABLE TABLETS PO SCH (10:53)
[2021-10-17 13:48] LABS: BASO % 0.5 % (0-2.0); EOS % 0.9 % (0-4.5); HEMATOCRIT 29.4 % (32.4-45.2); HEMOGLOBIN 9.5 GM/dL (10.7-15.3); LYMPH % 30.9 % (8-40); MCH 27.4 pg (25.7-33.7); MCHC 32.4 g/dl (32.0-36.0); MEAN CELL VOLUME 84.8 fl (80-96); MEAN PLT VOLUME 6.8 fl (7.5-11.1); MONO % 12.1 % (3.8-10.2); NEUT % 55.6 % (42.8-82.8); PLATELET COUNT 248 10^3/uL (134-434); RBC 3.47 M/mm3 (3.60-5.2); RDW 16.1 % (11.6-15.6); WHITE BLOOD COUNT 4.2 K/mm3 (4.0-10.0)
[2021-10-17 13:53] LABS: CALCIUM 8.3 mg/dL (8.5-10.1)
[2021-10-17 13:54] LABS: ALBUMIN 2.2 g/dl (3.4-5.0); BLOOD UREA NITROGEN 28.9 mg/dL (7-18)
[2021-10-17 13:59] LABS: TOT PROT 6.6 g/dl (6.4-8.2)
[2021-10-17 14:02] LABS: BILIRUBIN,TOTAL 0.6 mg/dL (0.2-1)
[2021-10-17] MEDS ORDERED: SODIUM CHLORIDE 0.9% 1000 ML INFUS.BAG IV ONE (14:16)
[2021-10-17] MEDS ORDERED: SODIUM CHLORIDE 0.9% 500 ML INFUS.BAG IV ONE ×2 (16:30)
[2021-10-17] MEDS ORDERED: PIPERACILLIN/TAZOBACTAM 3.375 GM VIAL IVPB ONE (17:49)
[2021-10-17] MEDS ORDERED: DEXTROSE 5%-WATER - 50 ML IVPB ONE (17:49)
[2021-10-17] MEDS: PIPERACILLIN/TAZOB 3.375 GM 3.375 GM in DEXTROSE 5%-WATER - 50 ML IVPB SCH (17:52)
[2021-10-17] MEDS ORDERED: PIPERACILLIN/TAZOB 3.375 GM 3.375 GM in DEXTROSE 5%-WATER - 50 ML IVPB SCH (18:00)
[2021-10-17 18:13] LABS: URINE APPEARANCE CLEAR; URINE BILIRUBIN NEGATIVE (NEGATIVE); URINE COLOR YELLOW; URINE GLUCOSE (UA) NEGATIVE (NEGATIVE); URINE KETONE NEGATIVE (NEGATIVE); URINE LEUK ESTERASE NEGATIVE (NEGATIVE); URINE NITRITE NEGATIVE (NEGATIVE); URINE PROTEIN NEGATIVE (NEGATIVE); URINE UROBILINOGEN 0.2 mg/dL (0.2-1.0)
[2021-10-18] MEDS ORDERED: PIPERACILLIN/TAZOBACTAM 3.375 GM VIAL IVPB ONE ×3 (03:09→10:15)
[2021-10-18] MEDS ORDERED: DEXTROSE 5%-WATER - 50 ML IVPB ONE ×2 (03:09→10:14)
[2021-10-18] MEDS: PIPERACILLIN/TAZOB 3.375 GM 3.375 GM in DEXTROSE 5%-WATER - 50 ML IVPB SCH ×2 (03:14→10:21)
[2021-10-18] MEDS: INSULIN SLIDING SCALE (NOVOLOG) 1 VIAL SQ SCH ×3 (06:04→16:44)
[2021-10-18] MEDS: HEPARIN NA (PORCINE) 5,000 UNITS/ML 1ML VIAL SQ SCH ×3 (06:04→22:51)
[2021-10-18] MEDS: ASPIRIN 81 MG CHEWABLE TABLETS PO SCH (10:21)
[2021-10-18 12:26] LABS: HEMOGLOBIN 9.2 GM/dL (10.7-15.3); MCH 27.5 pg (25.7-33.7); MCHC 31.8 g/dl (32.0-36.0); MEAN CELL VOLUME 86.5 fl (80-96); MEAN PLT VOLUME 6.5 fl (7.5-11.1); PLATELET COUNT 255 10^3/uL (134-434); RBC 3.35 M/mm3 (3.60-5.2); RDW 16.9 % (11.6-15.6); WHITE BLOOD COUNT 4.3 K/mm3 (4.0-10.0)
[2021-10-18 12:46] LABS: ALBUMIN 1.8 g/dl (3.4-5.0)
[2021-10-18 12:47] LABS: BLOOD UREA NITROGEN 26.9 mg/dL (7-18)
[2021-10-18 12:49] LABS: CREATININE 1.4 mg/dL (0.55-1.3)
[2021-10-18 12:51] LABS: BILIRUBIN,TOTAL 0.6 mg/dL (0.2-1)
[2021-10-18] MEDS ORDERED: SODIUM CHLORIDE 1,000 ML IV SCH (17:00)
[2021-10-18] MEDS ORDERED: INSULIN (NOVOLOG) ASPART 100 UNITS/ML 10ML VIAL ONE (20:47)
[2021-10-19] MEDS: FUROSEMIDE 40 MG TABLET (FP) PO SCH (06:42)
[2021-10-19] MEDS: HEPARIN NA (PORCINE) 5,000 UNITS/ML 1ML VIAL SQ SCH ×3 (06:42→21:37)
[2021-10-19] MEDS: INSULIN SLIDING SCALE (NOVOLOG) 1 VIAL SQ SCH ×3 (06:45→16:34)
[2021-10-19] MEDS: ASPIRIN 81 MG CHEWABLE TABLETS PO SCH (09:47)
[2021-10-19] MEDS ORDERED: SODIUM CHLORIDE 1,000 ML IV SCH (12:45)
[2021-10-19 13:19] LABS: BASO % 0.5 % (0-2.0); EOS % 1.4 % (0-4.5); HEMATOCRIT 29.8 % (32.4-45.2); HEMOGLOBIN 9.5 GM/dL (10.7-15.3); LYMPH % 31.8 % (8-40); MCH 27.4 pg (25.7-33.7); MCHC 32.1 g/dl (32.0-36.0); MEAN CELL VOLUME 85.6 fl (80-96); MEAN PLT VOLUME 6.5 fl (7.5-11.1); MONO % 10.7 % (3.8-10.2); NEUT % 55.6 % (42.8-82.8); PLATELET COUNT 304 10^3/uL (134-434); RBC 3.48 M/mm3 (3.60-5.2); RDW 17.2 % (11.6-15.6); WHITE BLOOD COUNT 4.3 K/mm3 (4.0-10.0)
[2021-10-19 14:03] LABS: BLOOD UREA NITROGEN 19.3 mg/dL (7-18)
[2021-10-19 14:06] LABS: CREATININE 0.9 mg/dL (0.55-1.3)
[2021-10-19] MEDS ORDERED: REMDESIVIR 200 MG in SODIUM CHLORIDE 250 ML IVPB ONE (15:19)
[2021-10-20] MEDS: HEPARIN NA (PORCINE) 5,000 UNITS/ML 1ML VIAL SQ SCH ×3 (05:42→21:44)
[2021-10-20] MEDS: INSULIN SLIDING SCALE (NOVOLOG) 1 VIAL SQ SCH ×3 (06:13→14:22)
[2021-10-20] MEDS: ASPIRIN 81 MG CHEWABLE TABLETS PO SCH (09:54)
[2021-10-20] MEDS ORDERED: INSULIN (NOVOLOG) ASPART 100 UNITS/ML 10ML VIAL ONE (11:20)
[2021-10-21] MEDS: HEPARIN NA (PORCINE) 5,000 UNITS/ML 1ML VIAL SQ SCH ×3 (06:19→21:43)
[2021-10-21] MEDS: INSULIN SLIDING SCALE (NOVOLOG) 1 VIAL SQ SCH ×3 (07:01→17:19)
[2021-10-21] MEDS ORDERED: INSULIN (NOVOLOG) ASPART 100 UNITS/ML 10ML VIAL ONE (10:51)
[2021-10-21] MEDS: ASPIRIN 81 MG CHEWABLE TABLETS PO SCH (11:42)
[2021-10-21] MEDS ORDERED: SODIUM CHLORIDE 500 ML IV STA (12:32)
[2021-10-22] MEDS: HEPARIN NA (PORCINE) 5,000 UNITS/ML 1ML VIAL SQ SCH ×2 (07:14→15:01)
[2021-10-22] MEDS: INSULIN SLIDING SCALE (NOVOLOG) 1 VIAL SQ SCH ×3 (07:23→17:15)
[2021-10-22 07:24] VITALS: TEMP 97.7
[2021-10-22] MEDS: ASPIRIN 81 MG CHEWABLE TABLETS PO SCH (10:31)
[2021-10-22 17:29] VITALS: BP 100/60; PULSE 94
== END 2021-10-22 18:24 | DRG 177 ==
LOC: JER 09:06 → JERBED 15:24 → J6S 20:37
PROVIDERS: ATTEND Internal Medicine
PROC: XW033E5 Introduction of Remdesivir Anti-infective into Peripheral Vein, Percutaneous Approach, New Technology Group 5 (ICD-10-PCS; principal; 2021-10-16)
DX: U07.1 COVID-19 (principal); J12.82 Pneumonia due to coronavirus disease 2019; I50.20 Unspecified systolic (congestive) heart failure; N17.9 Acute kidney failure, unspecified; I11.0 Hypertensive heart disease with heart failure; J44.9 Chronic obstructive pulmonary disease, unspecified; E11.51 Type 2 diabetes mellitus with diabetic peripheral angiopathy without gangrene; D64.9 Anemia, unspecified; E66.9 Obesity, unspecified; E78.5 Hyperlipidemia, unspecified; E78.00 Pure hypercholesterolemia, unspecified; I95.9 Hypotension, unspecified; Z68.29 Body mass index [BMI] 29.0-29.9, adult
CPT/HCPCS: 36415; 71045-TC-FY; 73610-TC-RT-FY; 73630-TC-RT-FY; 80048; 80053; 81003; 82550; 82728; 82962; 83615; 83690; 84484; 85025; 85027; 86140; 87040; 87086; 93005; 93010; 97116-GP; 97162-GP; 99285-25; C9399; C9803; J0131; J1644; U0003; U0005

== ENCOUNTER 2021-12-08 12:42 | Inpatient (IN) | payer OTHER ==
[2021-12-08 15:23] LABS: BASO % 0.8 % (0-2.0); EOS % 0.3 % (0-4.5); HEMATOCRIT 24.2 % (32.4-45.2); HEMOGLOBIN 7.7 GM/dL (10.7-15.3); LYMPH % 21.9 % (8-40); MCH 29.5 pg (25.7-33.7); MCHC 31.8 g/dl (32.0-36.0); MEAN CELL VOLUME 92.8 fl (80-96); MEAN PLT VOLUME 6.9 fl (7.5-11.1); MONO % 2.9 % (3.8-10.2); NEUT % 74.1 % (42.8-82.8); PLATELET COUNT 472 10^3/uL (134-434); RBC 2.61 M/mm3 (3.60-5.2); RDW 18.3 % (11.6-15.6); RETICULOCYTES 1.87 % (0.5-1.5); WHITE BLOOD COUNT 7.5 K/mm3 (4.0-10.0)
[2021-12-08 15:29] LABS: INR 1.49 (0.83-1.09); PROTHROMBIN TIME (PATIENT) 17.2 SEC (9.7-13.0)
[2021-12-08 15:51] LABS: CALCIUM 7.7 mg/dL (8.5-10.1)
[2021-12-08 15:52] LABS: ALBUMIN 1.6 g/dl (3.4-5.0); BLOOD UREA NITROGEN 8.9 mg/dL (7-18)
[2021-12-08 15:55] LABS: CREATININE 0.6 mg/dL (0.55-1.3)
[2021-12-08 15:56] LABS: TOT PROT 6.4 g/dl (6.4-8.2)
[2021-12-08 15:57] LABS: BILIRUBIN,TOTAL 0.4 mg/dL (0.2-1)
[2021-12-08] MEDS ORDERED: ACETAMINOPHEN 325 MG TABLET (FP) PO PRN (17:18)
[2021-12-08 18:16] LABS: EPI CELLS >36 /uL (0-25.1); HYALINE CASTS 18 /uL (0-3.1); URINE APPEARANCE TURBID; URINE BACTERIA 25 /uL (0-1359); URINE BILIRUBIN 1+ (NEGATIVE); URINE COLOR DK YELLOW; URINE GLUCOSE (UA) NEGATIVE (NEGATIVE); URINE KETONE TRACE (NEGATIVE); URINE LEUK ESTERASE NEGATIVE (NEGATIVE); URINE NITRITE NEGATIVE (NEGATIVE); URINE PROTEIN 1+ (NEGATIVE); URINE RBC 12 /uL (0-23.9); URINE WBC 36 /uL (0-25.8)
[2021-12-08 19:20] LABS: URINE CRYSTALS MODERATE /hpf
[2021-12-08] MEDS ORDERED: INSULIN SLIDING SCALE (NOVOLOG) 1 VIAL SQ SCH (22:00)
[2021-12-08] MEDS: SODIUM CHLORIDE 1,000 ML IV SCH (22:07)
[2021-12-08] MEDS ORDERED: PANTOPRAZOLE SODIUM 40 MG VIAL ONE (22:08)
[2021-12-08] MEDS: PANTOPRAZOLE SODIUM 40 MG VIAL IVPUSH SCH (22:10)
[2021-12-09 08:08] LABS: ALBUMIN 1.6 g/dl (3.4-5.0)
[2021-12-09 08:11] LABS: CREATININE 0.5 mg/dL (0.55-1.3)
[2021-12-09 08:13] LABS: BILIRUBIN,TOTAL 0.7 mg/dL (0.2-1); TOT PROT 6.3 g/dl (6.4-8.2)
[2021-12-09 09:23] LABS: HEMATOCRIT 26.9 % (32.4-45.2); HEMOGLOBIN 9.1 GM/dL (10.7-15.3); MCH 33.2 pg (25.7-33.7); MEAN CELL VOLUME 97.6 fl (80-96); MEAN PLT VOLUME 7.6 fl (7.5-11.1); PLATELET COUNT 421 10^3/uL (134-434); RBC 2.76 M/mm3 (3.60-5.2); RDW 17.2 % (11.6-15.6); WHITE BLOOD COUNT 9.9 K/mm3 (4.0-10.0)
[2021-12-09] MEDS ORDERED: PANTOPRAZOLE SODIUM 40 MG VIAL ONE (09:23)
[2021-12-09] MEDS: PANTOPRAZOLE SODIUM 40 MG VIAL IVPUSH SCH (09:31)
[2021-12-09] MEDS: PANTOPRAZOLE 20 MG TABLET PO SCH (11:00)
[2021-12-09] MEDS: POLYETHYLENE GLYCOL (HEALTHYLAX) 3350 17 GM PACKET PO SCH (11:00)
[2021-12-09] MEDS ORDERED: PANTOPRAZOLE 20 MG TABLET PO ONE (12:45)
[2021-12-09 13:07] LABS: SARS-CoV-2 NAA Not Detected (Not Detected)
[2021-12-09] MEDS ORDERED: ONDANSETRON *ODT* 4 MG TABLET ONE (13:52)
[2021-12-09] MEDS: ONDANSETRON *ODT* 4 MG TABLET SL PRN (13:55)
[2021-12-09 15:12] VITALS: BMI 24.6
[2021-12-09] MEDS: SODIUM CHLORIDE 1,000 ML IV SCH (18:32)
[2021-12-09 19:18] LABS: IRON SERUM 13 ug/dL (50-175)
[2021-12-09 19:20] LABS: TOTAL IRON BINDING CAPACITY 89 ug/dL (250-450)
[2021-12-09] MEDS: ATORVASTATIN CA 20 MG TABLET (FP) PO SCH (21:38)
[2021-12-09] MEDS: APIXABAN 5 MG TABLET PO SCH (21:39)
[2021-12-10] MEDS: PANTOPRAZOLE 20 MG TABLET PO SCH (09:21)
[2021-12-10] MEDS: SENNOSIDES 8.6MG TABLET (FP) PO SCH (09:21)
[2021-12-10] MEDS: FUROSEMIDE 20 MG TABLET (FP) PO SCH (09:21)
[2021-12-10] MEDS: POLYETHYLENE GLYCOL (HEALTHYLAX) 3350 17 GM PACKET PO SCH (10:15)
[2021-12-10 10:30] LABS: BASO % 0.3 % (0-2.0); EOS % 0.6 % (0-4.5); HEMATOCRIT 26.6 % (32.4-45.2); LYMPH % 14.1 % (8-40); MCH 31.9 pg (25.7-33.7); MCHC 33.9 g/dl (32.0-36.0); MEAN CELL VOLUME 94.1 fl (80-96); MEAN PLT VOLUME 6.9 fl (7.5-11.1); PLATELET COUNT 410 10^3/uL (134-434); RBC 2.83 M/mm3 (3.60-5.2); RDW 17.9 % (11.6-15.6); WHITE BLOOD COUNT 5.1 K/mm3 (4.0-10.0)
[2021-12-10 10:31] LABS: INR 1.51 (0.83-1.09); PROTHROMBIN TIME (PATIENT) 17.4 SEC (9.7-13.0)
[2021-12-10 10:32] LABS: BLOOD UREA NITROGEN 10.1 mg/dL (7-18); CALCIUM 7.8 mg/dL (8.5-10.1)
[2021-12-10 10:35] LABS: CREATININE 0.5 mg/dL (0.55-1.3)
[2021-12-10] MEDS: APIXABAN 5 MG TABLET PO SCH ×2 (14:45→21:38)
[2021-12-10] MEDS: SODIUM CHLORIDE 1,000 ML IV SCH (18:15)
[2021-12-10] MEDS: ATORVASTATIN CA 20 MG TABLET (FP) PO SCH (21:38)
[2021-12-11 08:36] LABS: BASO % 0.3 % (0-2.0); EOS % 0.2 % (0-4.5); HEMATOCRIT 24.7 % (32.4-45.2); HEMOGLOBIN 8.1 GM/dL (10.7-15.3); LYMPH % 22.9 % (8-40); MCH 30.8 pg (25.7-33.7); MCHC 32.7 g/dl (32.0-36.0); MEAN PLT VOLUME 6.9 fl (7.5-11.1); NEUT % 66.6 % (42.8-82.8); PLATELET COUNT 312 10^3/uL (134-434); RBC 2.63 M/mm3 (3.60-5.2); RDW 17.7 % (11.6-15.6); WHITE BLOOD COUNT 6.9 K/mm3 (4.0-10.0)
[2021-12-11 08:50] LABS: BLOOD UREA NITROGEN 10.5 mg/dL (7-18); CALCIUM 7.3 mg/dL (8.5-10.1)
[2021-12-11] MEDS ORDERED: POTASSIUM CHLORIDE TABS 20 MEQ TABLET.ER (FP) PO ONE (08:50)
[2021-12-11 08:51] LABS: ALBUMIN 1.3 g/dl (3.4-5.0)
[2021-12-11] MEDS ORDERED: IRON SUCROSE INJECTION 200 MG in SODIUM CHLORIDE 90 ML IVPB ONE (08:51)
[2021-12-11 08:53] LABS: CREATININE 0.5 mg/dL (0.55-1.3)
[2021-12-11 08:55] LABS: BILIRUBIN,TOTAL 0.6 mg/dL (0.2-1); TOT PROT 5.4 g/dl (6.4-8.2)
[2021-12-11] MEDS ORDERED: SODIUM CHLORIDE 250 ML IV STA (08:56)
[2021-12-11] MEDS: ASCORBIC ACID 250 MG TABLET (FP) PO SCH (10:24)
[2021-12-11] MEDS: ZINC SULFATE 220 MG CAPSULE (FP) PO SCH (10:24)
[2021-12-11] MEDS: APIXABAN 5 MG TABLET PO SCH ×2 (10:24→21:37)
[2021-12-11] MEDS: SENNOSIDES 8.6MG TABLET (FP) PO SCH (10:24)
[2021-12-11] MEDS: POLYETHYLENE GLYCOL (HEALTHYLAX) 3350 17 GM PACKET PO SCH (10:24)
[2021-12-11] MEDS: PANTOPRAZOLE 20 MG TABLET PO SCH (10:24)
[2021-12-11] MEDS: MULTIVITAMINS (DAILY MVI) TABLET (FP) PO SCH (10:24)
[2021-12-11] MEDS: ONDANSETRON *ODT* 4 MG TABLET SL PRN (12:48)
[2021-12-11] MEDS: POTASSIUM CHLORIDE 10 MEQ in SODIUM CHLORIDE 1,000 ML IV SCH (13:38)
[2021-12-11] MEDS: BACITRACIN 15 GM TUBE TOPICAL OINTMENT TP SCH (18:26)
[2021-12-11] MEDS: ATORVASTATIN CA 20 MG TABLET (FP) PO SCH (21:37)
[2021-12-12] MEDS: POTASSIUM CHLORIDE 10 MEQ in SODIUM CHLORIDE 1,000 ML IV SCH ×4 (06:09→20:02)
[2021-12-12 09:16] LABS: BASO % 0.1 % (0-2.0); EOS % 0.3 % (0-4.5); HEMATOCRIT 28.3 % (32.4-45.2); HEMOGLOBIN 9.3 GM/dL (10.7-15.3); MCHC 32.8 g/dl (32.0-36.0); MEAN CELL VOLUME 91.5 fl (80-96); MEAN PLT VOLUME 6.9 fl (7.5-11.1); MONO % 10.6 % (3.8-10.2); PLATELET COUNT 373 10^3/uL (134-434); RBC 3.09 M/mm3 (3.60-5.2); RDW 17.7 % (11.6-15.6); WHITE BLOOD COUNT 7.2 K/mm3 (4.0-10.0)
[2021-12-12 09:39] LABS: BLOOD UREA NITROGEN 11.1 mg/dL (7-18); CALCIUM 7.7 mg/dL (8.5-10.1); MAGNESIUM 1.8 mg/dL (1.8-2.4)
[2021-12-12 09:42] LABS: CREATININE 0.6 mg/dL (0.55-1.3)
[2021-12-12] MEDS: APIXABAN 5 MG TABLET PO SCH ×2 (09:49→21:28)
[2021-12-12] MEDS: POLYETHYLENE GLYCOL (HEALTHYLAX) 3350 17 GM PACKET PO SCH (09:49)
[2021-12-12] MEDS: ASCORBIC ACID 250 MG TABLET (FP) PO SCH (09:49)
[2021-12-12] MEDS: PANTOPRAZOLE 20 MG TABLET PO SCH (09:49)
[2021-12-12] MEDS: ZINC SULFATE 220 MG CAPSULE (FP) PO SCH (09:49)
[2021-12-12] MEDS: MULTIVITAMINS (DAILY MVI) TABLET (FP) PO SCH (09:49)
[2021-12-12] MEDS: SENNOSIDES 8.6MG TABLET (FP) PO SCH (09:49)
[2021-12-12] MEDS: BACITRACIN 15 GM TUBE TOPICAL OINTMENT TP SCH (09:50)
[2021-12-12] MEDS: FUROSEMIDE 20 MG TABLET (FP) PO SCH (10:40)
[2021-12-12] MEDS: ATORVASTATIN CA 10 MG TABLET (FP) PO SCH (21:28)
[2021-12-12] MEDS: CARVEDILOL 3.125 MG TABLET (FP) PO SCH (21:28)
[2021-12-13] MEDS: POTASSIUM CHLORIDE 10 MEQ in SODIUM CHLORIDE 1,000 ML IV SCH ×4 (06:03→21:52)
[2021-12-13] MEDS: SENNOSIDES 8.6MG TABLET (FP) PO SCH (09:37)
[2021-12-13] MEDS: ASCORBIC ACID 250 MG TABLET (FP) PO SCH (09:37)
[2021-12-13] MEDS: FUROSEMIDE 20 MG TABLET (FP) PO SCH (09:37)
[2021-12-13] MEDS: POLYETHYLENE GLYCOL (HEALTHYLAX) 3350 17 GM PACKET PO SCH (09:37)
[2021-12-13] MEDS: PANTOPRAZOLE 20 MG TABLET PO SCH (09:37)
[2021-12-13] MEDS: APIXABAN 5 MG TABLET PO SCH ×2 (09:37→21:52)
[2021-12-13] MEDS: MULTIVITAMINS (DAILY MVI) TABLET (FP) PO SCH (09:37)
[2021-12-13] MEDS: LOSARTAN POTASSIUM 50 MG TABLET PO SCH (09:38)
[2021-12-13] MEDS: BACITRACIN 15 GM TUBE TOPICAL OINTMENT TP SCH (09:38)
[2021-12-13] MEDS: CARVEDILOL 3.125 MG TABLET (FP) PO SCH ×2 (09:38→21:52)
[2021-12-13] MEDS: ZINC SULFATE 220 MG CAPSULE (FP) PO SCH (09:40)
[2021-12-13] MEDS: ATORVASTATIN CA 10 MG TABLET (FP) PO SCH (21:52)
[2021-12-14] MEDS: BACITRACIN 15 GM TUBE TOPICAL OINTMENT TP SCH (10:07)
[2021-12-14] MEDS: ASCORBIC ACID 250 MG TABLET (FP) PO SCH (10:07)
[2021-12-14] MEDS: FUROSEMIDE 20 MG TABLET (FP) PO SCH (10:07)
[2021-12-14] MEDS: SENNOSIDES 8.6MG TABLET (FP) PO SCH (10:07)
[2021-12-14] MEDS: CARVEDILOL 3.125 MG TABLET (FP) PO SCH ×2 (10:08→21:17)
[2021-12-14] MEDS: POLYETHYLENE GLYCOL (HEALTHYLAX) 3350 17 GM PACKET PO SCH (10:08)
[2021-12-14] MEDS: PANTOPRAZOLE 20 MG TABLET PO SCH (10:08)
[2021-12-14] MEDS: LOSARTAN POTASSIUM 50 MG TABLET PO SCH (10:08)
[2021-12-14] MEDS: ZINC SULFATE 220 MG CAPSULE (FP) PO SCH (10:08)
[2021-12-14] MEDS: APIXABAN 5 MG TABLET PO SCH ×2 (10:08→21:17)
[2021-12-14] MEDS: MULTIVITAMINS (DAILY MVI) TABLET (FP) PO SCH (10:08)
[2021-12-14] MEDS: ATORVASTATIN CA 10 MG TABLET (FP) PO SCH (21:17)
[2021-12-15] MEDS: APIXABAN 5 MG TABLET PO SCH (09:18)
[2021-12-15] MEDS: FUROSEMIDE 20 MG TABLET (FP) PO SCH (09:18)
[2021-12-15] MEDS: LOSARTAN POTASSIUM 50 MG TABLET PO SCH (09:18)
[2021-12-15] MEDS: BACITRACIN 15 GM TUBE TOPICAL OINTMENT TP SCH (09:18)
[2021-12-15] MEDS: PANTOPRAZOLE 20 MG TABLET PO SCH (09:18)
[2021-12-15] MEDS: CARVEDILOL 3.125 MG TABLET (FP) PO SCH (09:18)
[2021-12-15] MEDS: MULTIVITAMINS (DAILY MVI) TABLET (FP) PO SCH (09:18)
[2021-12-15] MEDS: POLYETHYLENE GLYCOL (HEALTHYLAX) 3350 17 GM PACKET PO SCH (09:18)
[2021-12-15] MEDS: ZINC SULFATE 220 MG CAPSULE (FP) PO SCH (09:18)
[2021-12-15] MEDS: SENNOSIDES 8.6MG TABLET (FP) PO SCH (09:18)
[2021-12-15] MEDS: ASCORBIC ACID 250 MG TABLET (FP) PO SCH (09:18)
[2021-12-15 14:56] VITALS: BP 97/63; PULSE 97; TEMP 98
== END 2021-12-15 17:35 | DRG 812 ==
LOC: JER 12:42 → UNDOADMOB 14:47 → INTOOBSV 14:47 → JERBED 14:47 → J6S 12-09 14:38 → JERBED 12-09 14:38 → J6S 12-09 16:13 → JERBED 12-10 10:08 → J6S 12-10 10:08 → OBSVTOIN 12-10 14:28 → J6S 12-14 11:43
PROVIDERS: ADMIT Family Medicine; ATTEND Family Medicine
PROC: 30233N1 Transfusion of Nonautologous Red Blood Cells into Peripheral Vein, Percutaneous Approach (ICD-10-PCS; 2021-12-08)
PROC: 0DJ08ZZ Inspection of Upper Intestinal Tract, Via Natural or Artificial Opening Endoscopic (ICD-10-PCS; principal; 2021-12-10 12:00)
DX: D50.0 Iron deficiency anemia secondary to blood loss (chronic) (principal); I50.22 Chronic systolic (congestive) heart failure; I82.531 Chronic embolism and thrombosis of right popliteal vein; I24.8 Other forms of acute ischemic heart disease; E78.5 Hyperlipidemia, unspecified; I71.4 Abdominal aortic aneurysm, without rupture; J44.9 Chronic obstructive pulmonary disease, unspecified; E11.51 Type 2 diabetes mellitus with diabetic peripheral angiopathy without gangrene; K22.2 Esophageal obstruction; K21.9 Gastro-esophageal reflux disease without esophagitis; K57.90 Diverticulosis of intestine, part unspecified, without perforation or abscess without bleeding; K59.00 Constipation, unspecified; K44.9 Diaphragmatic hernia without obstruction or gangrene; K31.7 Polyp of stomach and duodenum; I08.1 Rheumatic disorders of both mitral and tricuspid valves; L89.152 Pressure ulcer of sacral region, stage 2; K64.9 Unspecified hemorrhoids; I11.0 Hypertensive heart disease with heart failure; Z85.41 Personal history of malignant neoplasm of cervix uteri
CPT/HCPCS: 36415; 36430; 71045-TC-FY; 80048; 80053; 80061; 81003; 82272; 82607; 82728; 82746; 82962; 83036; 83540; 83550; 83735; 84484; 85025; 85027; 85045; 85610; 85730; 86850; 86900; 86901; 86922; 87070; 87086; 87186; 87205; 93005; 93010; 93970-TC; 97116-GP; 97161-GP; 99285-25; C9803; G0378; J1756; P9058; Q0162; U0003; U0005